=== PATIENT | male | born 1945 | race Caucasian/White ===

== ENCOUNTER 2019-11-30 09:42 | Outpatient (CLI) | payer MEDICARE, SELFPAY ==
--- NOTE | ~2019-11-30 | CT_ITS ---
EXAMINATION:CT chest wo con DATE: 11/30/2019 10:15 INDICATION: Aortic atherosclerosis. TECHNIQUE: Computed tomography (CT) of the chest was performed without intravenous contrast. Automate d exposure control and iterative reconstruction technique were employed. The dose-length product (DLP ) was 385.51 mGy-cm. COMPARISON: None. FINDINGS: The lungs demonstrate minimal atelectasis. Calcified left lung nodules and calcified left h ilar lymph nodes are consistent with old granulomatous disease. No pleural effusion. The heart size i s normal. There are coronary artery calcifications. No pericardial effusion. There are no pathologica lly enlarged lymph nodes. Thoracic aorta is normal in caliber. There is mild aortic atherosclerosis. There is severe cervical and thoracic spondylosis. IMPRESSION: 1. Mild aortic atherosclerosis. Reviewed, dictated and finalized at location A. [employer]ISH[employer]
== END 2019-11-30 09:43 | disposition home or self-care (01) ==
PROVIDERS: PCP Internal Medicine
DX: I25.118 Atherosclerotic heart disease of native coronary artery with other forms of angina pectoris (principal)
CPT/HCPCS: 71250

== ENCOUNTER 2020-07-10 15:00 | Outpatient (RCR) | payer MEDICARE, SELFPAY ==
[2020-04-18 15:25] VITALS: BP 122/80; PULSE 70; RESP 16; TEMP 36.4; O2SAT 97
[2020-04-18 16:07] VITALS: PULSE 70
== END 2020-07-10 18:20 | disposition home or self-care (01) ==
LOC: ANHCPREHAB 15:00
PROVIDERS: PCP Internal Medicine; Visit Provider Nurse Practitioner Adult Health
DX: Z95.1 Presence of aortocoronary bypass graft (principal)
CPT/HCPCS: 93798

== ENCOUNTER 2020-10-24 09:14 | Inpatient (IN) | payer MEDICARE, SELFPAY ==
[2020-10-24] VITALS (25 sets, daily range): BP systolic 116–184; BP diastolic 64–165; PULSE 94–117; RESP 14–35; TEMP 36.2–36.8; O2SAT 91–100; BMI 28.3
--- NOTE | ~2020-10-24 | CT_ITS ---
EXAMINATION: CTA chest PE protocol EXAM DATE: 10/24/2020 11:03 INDICATION: Shortness of breath and chest pain. TECHNIQUE: Spiral CTA of the chest (pulmonary arteries) was performed with 100 cc Omnipaque 350 intr avenous contrast injection. Images were acquired during the pulmonary arterial phase. Coronal maxi mum intensity projection 3D-reconstructions were created by the technologist on dedicated workstation . Axial, coronal and sagittal reformatted images were reviewed. The dose-length product (DLP) for t his examination was 590.42 mGy-cm. The exposure was tailored according to patient size (auto mA exp osure control), and iterative reconstruction (ASIR) was used as additional dose reduction technique. Comparison is made to prior examination from 11/30/2019. FINDINGS: Pulmonary arteries are well opacified and without intraluminal filling defects. No thora cic aortic dissection. There is moderate right greater than left pleural effusions with adjacent seg mental atelectasis. There is moderate amount of bilateral perihilar airspace disease, distribution blevins ggests cardiogenic pulmonary edema, but heart is within normal size limits. Infection also possible. There is a right lower lobe pulmonary nodule subsolid in density measuring up to 6 mm, stable. There are no pleural or pericardial effusions. Tracheobronchial tree is patent. There is no mediastina l, hilar or axillary lymphadenopathy. There is no pneumothorax. There are sternotomy wires, and c ardiac/coronary surgical changes. Correlate with prior history. Moderate transverse colonic divertic ulosis. There is thoracic spondylosis without osteoblastic or osteolytic lesions identified. IMPRESSION: 1. Moderate right greater than left pleural effusions with adjacent segmental atelectasis. 2. Moderate bilateral perihilar groundglass acute airspace disease most likely pulmonary edema. Infe ction not excludable. 3. Right lower lobe 6 mm nodule unchanged; additional 1 year follow-up low-dose chest CT. Reviewed, dictated and finalized at location A. BROKER IMPRESSION: 1. Moderate right greater than left pleural effusions with adjacent segmental atelectasis. 2. Moderate bilateral perihilar groundglass acute airspace disease most likely pulmonary edema. Infection not excludable. 3. Right lower lobe 6 mm nodule unchanged; additional 1 year follow-up low-dos e chest CT.
--- NOTE | ~2020-10-24 | XR_ITS ---
EXAMINATION: XR chest 1V portable DATE: 10/27/2020 13:36 INDICATION: Shortness of breath TECHNIQUE: frontal view of the chest was obtained. COMPARISON: Chest radiograph and CT dated 10/24/2020 FINDINGS: Bilateral airspace opacities most prominent in the perihilar and suprahilar regions which appears mil dly improved. Small bilateral pleural effusions, right greater than left. No pneumothorax. The cardio mediastinal silhouette is normal. Median sternotomy wires, ostial markers and mediastinal surgical cl ips consistent with prior coronary artery bypass grafting. IMPRESSION: 1. Slight improvement in bilateral perihilar and suprahilar predominant airspace opacities which coul d represent improving mild pulmonary edema or less likely pneumonia. 2. Persistent small bilateral pleural effusions. Reviewed, dictated and finalized at location B. P DROP CRANE OPERATOR IMPRESSION: 1. Slight improvement in bilateral perihilar and suprahilar predominant airspac e opacities which could represent improving mild pulmonary edema or less likely pneumonia. 2. Persistent small bilateral pleural effusions.
--- NOTE | ~2020-10-24 | XR_ITS ---
EXAMINATION: XR chest 1V portable DATE: 10/24/2020 10:31 INDICATION: Shortness of breath. TECHNIQUE: A single frontal view of the chest was obtained. COMPARISON: Chest CT 11/30/2019 FINDINGS: There are airspace opacities in all lung zones bilaterally. Pavel B-lines are noted. There is a small right pleural effusion. No pneumothorax. The heart size is normal. Median sternotomy wire s are noted. IMPRESSION: 1. Diffuse lung disease, consistent with pulmonary edema versus pneumonia. 2. Small right pleural effusion. Reviewed, dictated and finalized at location A. CLINICAL DOCUMENTATION SPECIALIST
--- NOTE | 2020-10-24 09:36 | ECG_ITS ---
Measurements Intervals Morse Rate: 109 P: -7 NJ: 189 QRS: 192 QRSD: 133 T: 2 QT: 361 QTc: 487 Interpretive Statements SINUS TACHYCARDIA RIGHT AXIS DEVIATION RIGHT BUNDLE BRANCH BLOCK BASELINE ARTIFACT- II, III, AVR, AVL, AVF, V2-V6 ABNORMAL ECG Electronically Signed On 10-24-2020 11:05:29 POWER AND RECOVERY SUPERVISOR by Nicolás Ellis D.O.
--- NOTE | 2020-10-24 09:38 | ED.SOB ---
HPI - SOB/Dyspnea General Chief Complaint: Shortness of Breath/Dyspnea Stated Complaint: sob Source: patient Mode of arrival: EMS Limitations: no limitations History of Present Illness HPI Narrative: 75-year-old male presented to the emergency department with complaints of shortness of breath. He was at home, called the ambulance. Patient was given magnesium IV in route. He states after this he is feeling a little bit better. EMS did note that he sounded somewhat wheezing on arrival. Patient states that this has been getting worse over the last couple of days. He states that he is seeing a dealer card room to be worked up for a leaky valve . Patient states that he is just started this process and is uncertain of what exactly it is. He denies any chest pain at this time. Patient denies any swelling elsewhere. He does note that his abdomen may be slightly swollen as he was having trouble getting his back brace on. Related Data Home Medications Medication Instructions Recorded Confirmed aspirin 81 mg PO DAILY 10/04/19 04/19/20 metoprolol succinate 12.5 mg PO DAILY 10/04/19 04/19/20 atorvastatin 20 mg PO HS 04/19/20 04/19/20 Allergies Allergy/AdvReac Type Severity Reaction Status Date / Time No Known Allergies Allergy Verified 10/24/20 09:23 Review of Systems Review of Systems: Narrative: CONSTITUTIONAL: Denies fever, chills, or sweats. EYES: Denies visual changes, redness, or discharge. ENT: Denies rhinorrhea, congestion, sore throat, or otalgia. CARDIOVASCULAR: Denies chest pain, palpitations, or edema. RESPIRATORY: Endorses dyspnea. GASTROINTESTINAL: Denies abdominal pain, nausea, vomiting, or diarrhea. GENITOURINARY: Denies dysuria or hematuria. SKIN: Denies rash or itching. MUSCULOSKELETAL: Denies back pain, joint pain, or myalgia. NEUROLOGIC: Denies headache, numbness, dizziness, or weakness. PSYCHIATRIC: Denies anxiety or depression. [facility] Family History Family History Sibling Acute myocardial infarction Father Lung cancer Mother Cancer Social History Social History Smoking status: Never smoker Exam Narrative: Exam Narrative: GENERAL: Well-appearing, well-nourished, and in no acute distress. HEAD: Normocephalic, atraumatic. EYES: PERRLA and EOMI. ENT: Nares clear, no rhinorrhea or epistaxis. Mucous membranes moist. Oropharynx without tonsillar hypertrophy exudate or other lesions. Bilateral TMs pearly lakhani nonbulging NECK: Supple. No adenopathy or masses. No carotid bruits or JVD CHEST: Clear to auscultation. No respiratory distress. Crackles bilaterally, right worse than left HEART: Regular rate and rhythm. No murmur heard. Normal peripheral pulses. ABDOMEN: Soft, nontender, nondistended, normal active bowel sounds. EXTREMITIES: Normal range of motion. No edema. SKIN: Warm, dry, no rash. NEURO: No focal deficits. Alert and oriented x3. PSYCH: Normal mood and affect. Course Reevaluation(s) Reevaluation #1: Sitting comfortably at this time. Patient has no complaints. He states that he is feeling somewhat better. Time: 10:55 Consultations Consultation #1: Case discussed with Dr. Dsouza, cardiology, covering for the patient's dealer card room Dr. Murdock. He was updated to the patient's presentation and evaluation thus far. He recommends holding on heparin until the CTA is resulted. Time: 11:14 Consultation #2: Spoke with Dr. Kan, hospitalist service. He agrees to accept patient for admission and further evaluation after all details of presentation and evaluation were discussed. Time: 11:26 Vital Signs Vital signs: Vital Signs Temperature 36.8 C 10/24/20 09:16 Pulse Rate 108 H 10/24/20 09:16 Respiratory Rate 32 H 10/24/20 09:16 Blood Pressure 170/108 H 10/24/20 09:16 Pulse Oximetry 94 10/24/20 09:16 Temperature 36.8 C 10/24/20 09:16 Pulse Rate 117 H 10/24/20 10:
[2020-10-24 09:55] LABS: Basophils Absolute Auto 0.1 K/mm3 (0.0-0.1); Basophils Percent Auto 0.5 % (0.2-1.2); Eosinophils Absolute Auto 0.2 K/mm3 (0-0.3); Eosinophils Percent Auto 1.5 % (0-4.4); Hematocrit 39.4 % (42.0-52.0); Hemoglobin 12.2 g/dL (14.0-18.0); Immature Granulocyte Absolute 0.04 K/mm3 (0.00-0.031); Immature Granulocyte Percent A 0.3 % (0-0.5); Lymphocytes Absolute Auto 1.57 K/mm3 (0.9-3.2); Mean Corpuscular Hemoglobin 27.9 pg (26-34); Mean Corpuscular Volume 90.2 fl (80-100); Mean Platelet Volume 8.5 fl (7.4-10.4); Monocytes Absolute Auto 0.6 K/mm3 (0.1-0.6); Monocytes Percent Auto 4.3 % (2.6-8.5); Neutrophils Absolute Auto 10.7 K/mm3 (1.3-6.7); Neutrophils Percent Auto 81.4 % (45.5-73.1); Platelet Count Result 466 k/mm3 (150-375); Red Blood Count 4.37 M/mm3 (4.6-6.20); White Blood Count 13.1 K/mm3 (4.5-10.0)
[2020-10-24 10:06] LABS: Chloride 108 mmol/L (98-107)
[2020-10-24 10:08] LABS: Magnesium 2.4 mg/dL (1.6-2.3)
[2020-10-24 10:09] LABS: Anion Gap 8 mmol/L (8-16); Blood Urea Nitrogen 22 mg/dL (9-20); Calcium 8.8 mg/dL (8.4-10.2); Carbon Dioxide 26 mmol/L (22-30); Estimated CRCL calculation 54 ml/min; Estimated Glomerular Filt Rate > 60; Glucose 155 mg/dL (75-110); Potassium 4.1 mmol/L (3.4-5.0); Sodium 142 mmol/L (137-145)
[2020-10-24 10:24] LABS: NT Pro B Type Natriuretic Pept 10000 PG/ML (5-100); Troponin I 0.501 ng/mL (0.000-0.034)
[2020-10-24] MEDS: FUROSEMIDE INJ 40 MG/4 ML VIAL IV PUSH (10:51)
[2020-10-24 12:43] LABS: Troponin I 0.521 ng/mL (0.000-0.034)
--- NOTE | 2020-10-24 15:31 | PC.NURSE ---
1500- Heart healthy diet ordered.
--- NOTE | 2020-10-24 18:38 | PC.NURSE ---
Nimo Corbett (spouse) updated
--- NOTE | 2020-10-24 19:04 | ADMGEN ---
This patient, Sourav Juan, was admitted to IMU Room 203-01. Patient/family oriented to hospital policies and general routines including ID bracelet, bed and alarms, visiting hours, pain management, procedures, bathroom and other care routines, personal items, smoking policy, room service/diet, and visiting hours. Information on how to activate the Rapid Response Team has been discussed. Patient/Family are encouraged to report perceived risks to care and to ask questions if they do not understand what they are told or what they should do.
[2020-10-24 21:13] LABS: SARS-CoV-2 RNA PCR Negative
[2020-10-25] VITALS (16 sets, daily range): BP systolic 93–125; BP diastolic 54–75; PULSE 71–106; RESP 18–24; TEMP 35.9–37.1; O2SAT 92–98
[2020-10-25 04:39] LABS: Basophils Absolute Auto 0.1 K/mm3 (0.0-0.1); Basophils Percent Auto 0.7 % (0.2-1.2); Eosinophils Absolute Auto 0.2 K/mm3 (0-0.3); Hematocrit 34.3 % (42.0-52.0); Hemoglobin 10.9 g/dL (14.0-18.0); Immature Granulocyte Absolute 0.03 K/mm3 (0.00-0.031); Immature Granulocyte Percent A 0.3 % (0-0.5); Lymphocytes Absolute Auto 1.65 K/mm3 (0.9-3.2); Lymphocytes Percent Auto 15.7 % (18.3-44.2); Mean Corpuscular HGB Conc 31.8 g/dl (32-36); Mean Corpuscular Hemoglobin 27.5 pg (26-34); Mean Corpuscular Volume 86.4 fl (80-100); Mean Platelet Volume 8.6 fl (7.4-10.4); Monocytes Absolute Auto 0.8 K/mm3 (0.1-0.6); Monocytes Percent Auto 7.3 % (2.6-8.5); Neutrophils Absolute Auto 7.8 K/mm3 (1.3-6.7); Platelet Count Result 456 k/mm3 (150-375); Red Blood Count 3.97 M/mm3 (4.6-6.20); Red Cell Distribution Width 14.9 % (11.5-14.5); White Blood Count 10.5 K/mm3 (4.5-10.0)
[2020-10-25 07:46] LABS: Alanine Aminotransferase 17 U/L (4-50); Alkaline Phosphatase 116 U/L (38-126); Anion Gap 6 mmol/L (8-16); Aspartate Amino Transferase 25 U/L (17-59); Bilirubin,Total 0.5 mg/dL (0.2-1.3); Blood Urea Nitrogen 23 mg/dL (9-20); CRP 2.5 mg/dL (<1.0); Calcium 8.4 mg/dL (8.4-10.2); Carbon Dioxide 31 mmol/L (22-30); Chloride 105 mmol/L (98-107); Estimated CRCL calculation 48 ml/min; Estimated Glomerular Filt Rate > 60; Glucose 106 mg/dL (75-110); Potassium 3.8 mmol/L (3.4-5.0); Sodium 142 mmol/L (137-145)
[2020-10-25] MEDS: ASPIRIN 81 MG CHEWABLE TABLET PO (10:10)
[2020-10-25] MEDS: METOPROLOL TARTRATE 25 MG TABLET PO ×2 (10:10→21:23)
--- NOTE | 2020-10-25 15:21 | PM.CNCAR ---
Assessment and Plan Assessment and plan (1) New onset of congestive heart failure: Code(s): I50.9 - Heart failure, unspecified Status: Acute Assessment and Plan: Likely secondary to his mitral regurgitation. Furosemide 40 mg IV daily. Basic metabolic panel morning. Continue metoprolol, aspirin, statin (2) CAD (coronary artery disease): Code(s): I25.10 - Atherosclerotic heart disease of [place] coronary artery without angina pectoris Status: Acute Assessment and Plan: 3 vessel CABG in September 2019: Continue aspirin, statin, metoprolol (3) Elevated troponin: Code(s): R77.8 - Other specified abnormalities of plasma proteins Status: Acute Assessment and Plan: Not related to ACS (4) Nonrheumatic mitral valve regurgitation: Code(s): I34.0 - Nonrheumatic mitral (valve) insufficiency Status: Acute Assessment and Plan: Moderate to severe by echocardiogram in the office which is highly eccentric. Plan for MARCO A on Friday after adequate diuresis History of Present Illness History of Present Illness Consult date/time: 10/25/20 15:21 Requesting physician: Gabriel Zafar DO Consult reason: congestive heart failure Reason For Visit: New onset of CHF Narrative: Date of service 10/25/2020 History: Patient is a 75-year-old male who has a history of hypertension, coronary disease. He did have a CABG with a SEXTON to the LAD, radial artery graft to an OM and an SVG to the PDA in September of 2019. He recently saw our our nurse practitioner in the office because diaphoresis at rest. He felt unusually fatigued and dyspneic with exertion. He also has not been sleeping very well. There was some chest symptoms also with burning in the center of his chest. An echocardiogram was ordered and was personally reviewed and analyzed. 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 He was scheduled for a MARCO A on Friday but came to the hospital yesterday because a three-week history of simply not feeling very well and shortness of breath. He was very short of breath and has had a difficult time catching up and so EMS was called. Troponins have been slightly elevated at 0.[address] scan showed a pleural effusion with ground-glass opacities and pulmonary edema. He has been diuresed. He was given IV diuretics in the emergency department and urinated copiously and was feeling better by the time he even left the emergency department. He is now being seen on the floor and states he feels better now than he has in several weeks. He denies any chest pain, syncope, presyncope, paroxysmal nocturnal dyspnea, orthopnea, edema or palpitations. Review of Systems Review of Systems: All systems reviewed & are unremarkable except as noted in HPI and below Constitutional: Constitutional: Reports fatigue and Denies weakness Eyes: Eyes: Denies blurry vision ENT: Reports Normal hearing present Cardiovascular: Cardiovascular: Denies chest pain Respiratory: Respiratory: Reports dyspnea Gastrointestinal: Gastrointestinal: Denies abdominal pain Genitourinary: Genitourinary: Denies dysuria Musculoskeletal: Musculoskeletal: Denies neck pain Integumentary/Breasts: Skin/Breast: Denies dry skin Neurologic: Denies headache(s) Psychiatric: Psychiatric: Denies anxiety Endocrine: Endocrine: Denies fatigue Hematologic/Lymphatic: Hematologic/Lymphatic: Denies easy bleeding Allergic/Immunologic: Allergic/Immunologic: Denies GI upset with certain foods PMFSH Past Medical History Medical History (Updated 10/25/20 @ 15:45 by Alexandro Cain MD) CAD (coronary artery disease) New onset of congestive heart failure Family History Family History Sibling Acute myocardial infarction Father Lung cancer Mother Cancer Social History S
--- NOTE | 2020-10-25 18:18 | PM.IMPN ---
Progress Note: A&P Assessment and Plan (1) New onset of congestive heart failure: Code(s): I50.9 - Heart failure, unspecified Status: Acute Assessment and Plan: 10/25/20 18:18 Chief Complaint: Shortness of breath Narrative: Sourav Juan is a 75 year old male with no history of hypertension or diabetes initially patient was seen by crewman armoured personnel carrier [id number] in September of 2019 and had a cardiac catheterization which showed the patient had severe three-vessel coronary artery disease and he was referred to [facility] and had a CABG in December of 2019, he received 12 weeks of cardiopulmonary rehab, patient states he was doing reasonably well, doing his daily routine activities, does have history of back pain and July of 2020 patient had a back surgery and after that he was doing very well to and was able to do his daily things, patient states 3 weeks prior to coming to emergency depart he has been feeling not well with shortness of breath, and last he was seen by his crewman armoured personnel carrier [id number] and had EKG and further evaluate patient had a transthoracic cardiac echo results not available in the chart as echo was done in the cardiology office, patient was told he has a leaky valve and needed further evaluation with a MARCO A, we will schedule to have COVID test today prior the MARCO A, however today patient was quite short of breath had difficult time catching his breath see was brought to the emergency department further evaluation. Emergency depart his tropes were elevated 0.5 flat, cardiology was consulted from the ER it was decided not to anticoagulate to further evaluate patient had CTA of the chest showed 1. Moderate right greater than left pleural effusions with adjacent segmental atelectasis. 2. Moderate bilateral perihilar groundglass acute airspace disease most likely pulmonary edema. Infection not excludable. 3. Right lower lobe 6 mm nodule unchanged; additional 1 year follow-up low-dose chest CT. It did not show patient has pulmonary emboli, he does have a exacerbation of CHF and patient was given IV Lasix in the emergency depart since then patient had filled 3 urinal and he states is feeling much better and can breathe much compared to when he arrived, the CTA of the chest also pointed patient may have a COVID-19 pneumonia patient is being tested and currently on droplet isolation. Patient will be seen crewman armoured personnel carrier [id number] and further recommendation to follow. 10/25 patient COVID test is negative, patient is seen by Cardiology started the patient IV Lasix, patient is feeling much not a short of breath patient is diuresing well, states he is filled more than 2 urinal today again, and able to breathe, will continue to diurese the patient, patient will have MARCO A on Friday and further recommendation to follow. (2) Elevated troponin: Code(s): R77.8 - Other specified abnormalities of plasma proteins Status: Acute Assessment and Plan: Most likely demand ischemia secondary to exacerbation of CHF unlikely acute coronary syndrome patient is seen by Cardiology no further workup is recommended (3) COVID-19: Code(s): U07.1 - COVID-19 Status: Acute Assessment and Plan: Patient COVID test is negative he is off isolation Time Spent With Patient Time with patient: 15 - 25 minutes Subjective Date/time seen: 10/25/20 18:18 Chief Complaint: Shortness of breath Narrative: Sourav Juan is a 75 year old male with no history of hypertension or diabetes initially patient was seen by crewman armoured personnel carrier [id number] in September of 2019 and had a cardiac catheterization which showed the patient had severe three-vessel coronary artery disease and he was referred to [facility] and had a CABG in December of 2019, he received 12 weeks of cardiopulmonary rehab, patient states he was doing reasonably well, doing his daily routine activities, does have history of back pain and July of 2020 patient had a back surgery and after that he was doing very well to an
[2020-10-25] MEDS: ATORVASTATIN 20 MG TABLET PO (21:23)
[2020-10-26] VITALS (19 sets, daily range): BP systolic 99–120; BP diastolic 53–73; PULSE 78–91; RESP 16–20; TEMP 35.6–36.1; O2SAT 93–98
[2020-10-26 05:06] LABS: Anion Gap 4 mmol/L (8-16); Blood Urea Nitrogen 26 mg/dL (9-20); Calcium 8.5 mg/dL (8.4-10.2); Carbon Dioxide 30 mmol/L (22-30); Chloride 106 mmol/L (98-107); Estimated CRCL calculation 44 ml/min; Estimated Glomerular Filt Rate 59; Glucose 104 mg/dL (75-110); Potassium 3.7 mmol/L (3.4-5.0); Sodium 140 mmol/L (137-145)
[2020-10-26] MEDS: ASPIRIN 81 MG CHEWABLE TABLET PO (08:21)
[2020-10-26] MEDS: FUROSEMIDE INJ 40 MG/4 ML VIAL IV PUSH (08:22)
[2020-10-26] MEDS: METOPROLOL TARTRATE 25 MG TABLET PO ×2 (09:22→21:10)
[2020-10-26] MEDS: POTASSIUM CHLORIDE 20 MEQ TABLET 40 MEQ PO (09:22)
--- NOTE | 2020-10-26 09:38 | PM.PNCARD ---
Progress Note: A&P Assessment and Plan (1) New onset of congestive heart failure: Code(s): I50.9 - Heart failure, unspecified Status: Acute Assessment and Plan: Likely secondary to his mitral regurgitation. DC IV furosemide. Switch him to oral furosemide 20 mg daily. Potassium supplement 40 mEq p.o. x1. (2) CAD (coronary artery disease): Code(s): I25.10 - Atherosclerotic heart disease of [place] coronary artery without angina pectoris Status: Acute Assessment and Plan: 3 vessel CABG in September 2019: Continue aspirin, statin, metoprolol (3) Elevated troponin: Code(s): R77.8 - Other specified abnormalities of plasma proteins Status: Acute Assessment and Plan: Not related to ACS (4) Nonrheumatic mitral valve regurgitation: Code(s): I34.0 - Nonrheumatic mitral (valve) insufficiency Status: Acute Assessment and Plan: Moderate to severe by echocardiogram in the office which is highly eccentric. NPO after midnight. Plan for MARCO A on Friday with Dr. Murdock Subjective Date/time seen: 10/26/20 09:38 Interval history: 75-year-old admitted for shortness of breath, heart failure Date of service 10/26/2020: He continues to breathe easier. No chest pain. No shortness of breath at this point. No swelling Review of Systems Review of Systems: All systems reviewed & are unremarkable except as noted in HPI and below Constitutional: Constitutional: Denies fatigue, Denies headache(s) and Denies weakness Eyes: Eyes: Denies blurry vision ENT: Reports Normal hearing present, Denies headache(s) and Denies neck pain Cardiovascular: Cardiovascular: Denies chest pain and Reports dyspnea Respiratory: Respiratory: Reports dyspnea Gastrointestinal: Gastrointestinal: Denies abdominal pain Genitourinary: Genitourinary: Denies dysuria Musculoskeletal: Musculoskeletal: Denies neck pain Integumentary/Breasts: Skin/Breast: Denies dry skin Neurologic: Reports Normal hearing present, Denies headache(s) and Denies weakness Psychiatric: Psychiatric: Denies anxiety Endocrine: Endocrine: Denies fatigue Hematologic/Lymphatic: Hematologic/Lymphatic: Denies easy bleeding Allergic/Immunologic: Allergic/Immunologic: Denies GI upset with certain foods Exam Narrative: Exam Narrative: Alert oriented. Appears to be in no acute distress Const: General: comfortable and no acute distress HENMT: General nose exam: Normal nares present Eyes: Sclera: sclerae normal Neck: Neck: supple and no JVD Chest: Other: No reproducible chest wall pain to palpation Resp: Auscultation: clear to auscultation bilaterally Cardio: Rate: regular rate Rhythm: regular rhythm Heart sounds: Murmur heart sound present GI: Inspection: normal to inspection Skin: General skin exam: normal color Neuro: Cranial nerves: Yes Normal hearing present Cognition (Neuro): normal cognition Speech: normal speech Extrem: General: normal to inspection Psych: Mental Status: mental status grossly normal Objective Data Vital Signs Vital Signs: Vital Signs - 24 hr 10/25/20 10:00 10/25/20 10:10 10/25/20 12:00 Temperature 36.0 C L Pulse Rate 101 H 104 H 96 Respiratory Rate 18 Blood Pressure 110/68 Pulse Oximetry 92 10/25/20 14:00 10/25/20 16:00 10/25/20 18:00 Temperature 36.4 C L Pulse Rate 82 71 97 Respiratory Rate 18 Blood Pressure 125/75 Pulse Oximetry 97 10/25/20 19:26 10/25/20 20:00 10/25/20 21:23 Temperature 36.1 C L Pulse Rate 91 78 101 H Respiratory Rate 18 18 Blood Pressure 106/67 Pulse Oximetry 96 94 10/25/20 22:00 10/25/20 23:46 10/26/20 00:00 Temperature 37.1 C Pulse Rate 78 78 79 Respiratory Rate 18 18 Blood Pressure 93/54 L Pulse Oximetry 94 94 10/26/20 02:00 10/26/20 04:00 10/26/20 06:00 Temperature 36.1 C L Pulse Rate 78 82 82 Respiratory Rate 16 Blood Pressure 101/53 L Pulse Oximetry 96 01
[2020-10-26 12:48] LABS: Basophils Absolute Auto 0.1 K/mm3 (0.0-0.1); Basophils Percent Auto 0.8 % (0.2-1.2); Eosinophils Absolute Auto 0.3 K/mm3 (0-0.3); Eosinophils Percent Auto 3.1 % (0-4.4); Hematocrit 36.8 % (42.0-52.0); Hemoglobin 11.5 g/dL (14.0-18.0); Immature Granulocyte Absolute 0.04 K/mm3 (0.00-0.031); Immature Granulocyte Percent A 0.4 % (0-0.5); Lymphocytes Absolute Auto 1.85 K/mm3 (0.9-3.2); Lymphocytes Percent Auto 17.4 % (18.3-44.2); Mean Corpuscular HGB Conc 31.3 g/dl (32-36); Mean Corpuscular Hemoglobin 27.8 pg (26-34); Mean Corpuscular Volume 88.9 fl (80-100); Mean Platelet Volume 8.5 fl (7.4-10.4); Monocytes Absolute Auto 0.8 K/mm3 (0.1-0.6); Monocytes Percent Auto 7.9 % (2.6-8.5); Neutrophils Absolute Auto 7.5 K/mm3 (1.3-6.7); Neutrophils Percent Auto 70.4 % (45.5-73.1); Platelet Count Result 482 k/mm3 (150-375); Red Blood Count 4.14 M/mm3 (4.6-6.20); White Blood Count 10.7 K/mm3 (4.5-10.0)
[2020-10-26 13:02] LABS: INR 1.1; Prothrombin Time 14.9 Seconds (11.1-14.7)
--- NOTE | 2020-10-26 15:37 | PM.IMPN ---
Progress Note: A&P Assessment and Plan (1) New onset of congestive heart failure: Code(s): I50.9 - Heart failure, unspecified Status: Acute Assessment and Plan: 10/26/20 15:37 Chief Complaint: Shortness of breath Narrative: Sourav Juan is a 75 year old male with no history of hypertension or diabetes initially patient was seen by sort operations supervisor in September of 2019 and had a cardiac catheterization which showed the patient had severe three-vessel coronary artery disease and he was referred to [facility] and had a CABG in December of 2019, he received 12 weeks of cardiopulmonary rehab, patient states he was doing reasonably well, doing his daily routine activities, does have history of back pain and July of 2020 patient had a back surgery and after that he was doing very well to and was able to do his daily things, patient states 3 weeks prior to coming to emergency depart he has been feeling not well with shortness of breath, and last he was seen by his sort operations supervisor and had EKG and further evaluate patient had a transthoracic cardiac echo results not available in the chart as echo was done in the cardiology office, patient was told he has a leaky valve and needed further evaluation with a MARCO A, we will schedule to have COVID test today prior the MARCO A, however today patient was quite short of breath had difficult time catching his breath see was brought to the emergency department further evaluation. Emergency depart his tropes were elevated 0.5 flat, cardiology was consulted from the ER it was decided not to anticoagulate to further evaluate patient had CTA of the chest showed 1. Moderate right greater than left pleural effusions with adjacent segmental atelectasis. 2. Moderate bilateral perihilar groundglass acute airspace disease most likely pulmonary edema. Infection not excludable. 3. Right lower lobe 6 mm nodule unchanged; additional 1 year follow-up low-dose chest CT. It did not show patient has pulmonary emboli, he does have a exacerbation of CHF and patient was given IV Lasix in the emergency depart since then patient had filled 3 urinal and he states is feeling much better and can breathe much compared to when he arrived, the CTA of the chest also pointed patient may have a COVID-19 pneumonia patient is being tested and currently on droplet isolation. Patient will be seen sort operations supervisor and further recommendation to follow. 10/25 patient COVID test is negative, patient is seen by Cardiology started the patient IV Lasix, patient is feeling much not a short of breath patient is diuresing well, states he is filled more than 2 urinal today again, and able to breathe, will continue to diurese the patient, patient will have MARCO A on Friday and further recommendation to follow. 10/26 patient with exacerbation of CHF being diuresed with IV Lasix is states feeling much as he has been urinating, patient is scheduled for MARCO A and further recommendations follow, will continue PT/OT. (2) Elevated troponin: Code(s): R77.8 - Other specified abnormalities of plasma proteins Status: Acute Assessment and Plan: Most likely demand ischemia secondary to exacerbation of CHF unlikely acute coronary syndrome patient is seen by Cardiology no further workup is recommended (3) COVID-19: Code(s): U07.1 - COVID-19 Status: Acute Assessment and Plan: Patient COVID test is negative he is off isolation Subjective Date/time seen: 10/26/20 15:37 Chief Complaint: Shortness of breath Narrative: Sourav Juan is a 75 year old male with no history of hypertension or diabetes initially patient was seen by sort operations supervisor in September of 2019 and had a cardiac catheterization which showed the patient had severe three-vessel coronary artery disease and he was referred to [facility] and had a CABG in December of 2019, he received 12 weeks of cardiopulmonary rehab, patient states he was doing reasonably well, doing his daily
[2020-10-26] MEDS: ATORVASTATIN 20 MG TABLET PO (21:10)
[2020-10-27] VITALS (19 sets, daily range): BP systolic 91–113; BP diastolic 56–69; PULSE 77–125; RESP 16–21; TEMP 35.7–37; O2SAT 93–99
--- NOTE | 2020-10-27 | ECHO_ITS ---
Patient Info Name: Sourav Juan Age: 75 years : 1945 Gender: Male Ht: 66 in Wt: 180 lbs BSA: 1.97 m2 HR: 75 bpm BP: 108 / 90 mmHg Heart Rhythm: Sinus Rhythm Technical Quality: Good Exam Date: 10/27/2020 11:09 AM Exam Location: [facility] Patient Status: Inpatient Admit Date: 10/24/2020 Staff Ordering Physician: Alexandro Cain MD Executive Director Sheltered Workshop: Juan R Lentz RDCS Attending Provider: Efrain Kan MD Referring Physician: Payton MORALES; Exam Type: CA echo transesophageal Study Info Indications I34.0 - Nonrheumatic mitral (valve) insufficiency Complete two-dimensional, color flow and Doppler transesophageal study is performed. History/Risk Factors CAD w/ CABG 09/2019, new CHF. Procedure Details The transesophageal probe was passed into the posterior pharynx, mid-esophagus, distal esophagus, and gastric fundus. The procedure was completed without complications. Summary 1. The transesophageal probe was passed into the posterior pharynx, mid-esophagus, distal esophagus, and gastric fundus. The procedure was completed without complications. 2. Normal left ventricular size and contractility. 3. Anterior leaflet mitral valve prolapse with highly eccentric MR jet moderate to severe. 4. No evidence of disrupted/flail chordal elements. 5. Moderately dilated left atrium. Left Ventricle Left ventricular chamber dimension is normal. Left ventricular systolic function is normal with an ejection fraction by Biplane Method of Discs of Empty. Right Ventricle Right ventricular chamber dimension is normal. Left Atria Left atrial chamber dimension is moderately enlarged. Right Atria Right atrial chamber dimension is normal. Aortic Valve The aortic valve is normal. Pulmonic Valve The pulmonic valve is not well visualized. Mitral Valve The mitral valve has anterior prolapse. There is moderate to severe mitral valve regurgitation. Tricuspid Valve The tricuspid valve leaflets are normal. Pericardium/Pleural The pericardium appears normal. Inferior Vena Cava Not well visualized inferior vena cava with Empty collapse upon inspiration consistent with Empty right atrial pressure, Empty. Aorta The aortic root size at the sinus of Valsalva is normal. Report Signatures
--- NOTE | 2020-10-27 04:14 | ECG_ITS ---
Measurements Intervals [place] Rate: 88 P: 17 OK: 189 QRS: 221 QRSD: 138 T: -29 QT: 407 QTc: 494 Interpretive Statements SINUS RHYTHM RIGHT AXIS DEVIATION RIGHT BUNDLE BRANCH BLOCK BASELINE ARTIFACT- I, II, III, AVR, AVL, AVF ABNORMAL ECG Electronically Signed On 10-27-2020 6:42:25 DOUBLE END CHUCKING MACHINE OPERATOR by Nicolás Ellis D.O.
--- NOTE | 2020-10-27 04:15 | ECG_ITS ---
Measurements Intervals [place] Rate: 87 P: -6 CO: 165 QRS: 233 QRSD: 137 T: -27 QT: 404 QTc: 489 Interpretive Statements SINUS RHYTHM RIGHT AXIS DEVIATION RIGHT BUNDLE BRANCH BLOCK LOW VOLTAGE- LIMB LEADS BASELINE ARTIFACT- I, II, III, AVR, AVL, AVF, V2 ABNORMAL ECG Electronically Signed On 10-27-2020 12:17:02 SUPERVISOR SCOURING PADS by Nicolás Ellis D.O.
[2020-10-27] MEDS: ASPIRIN 81 MG CHEWABLE TABLET PO (08:42)
[2020-10-27] MEDS: METOPROLOL TARTRATE 25 MG TABLET PO ×2 (08:42→19:58)
[2020-10-27] MEDS: FUROSEMIDE 20 MG TABLET PO (08:42)
--- NOTE | 2020-10-27 10:57 | WPDMODSED ---
Moderate Sedation Note-Pt Data Patient Data Diagnosis: coronary artery disease with previous CABG within the last year congestive heart failure with echocardiographic evidence of significant mitral regurgitation Present Complaint: short of breath Procedure to be performed/Plan: transesophageal echocardiogram Allergies Allergy/AdvReac Type Severity Reaction Status Date / Time No Known Allergies Allergy Verified 10/24/20 09:23 Home Medications Medication Instructions Recorded Confirmed Type aspirin 81 mg PO DAILY 10/04/19 10/24/20 History atorvastatin 20 mg PO HS 04/19/20 10/24/20 History colchicine 0.6 mg PO DAILY PRN 10/24/20 10/24/20 History metoprolol tartrate 25 mg PO BID 10/24/20 10/24/20 History Current Medications: Active Medications Aspirin (Aspirin 81 Mg Chewable Tablet) 81 mg PO DAILY REPLACED BY [facility] Last Admin: 10/27/20 08:42 Dose: 81 mg Documented by: Atorvastatin Calcium (Atorvastatin 20 Mg Tablet) 20 mg PO HS REPLACED BY [facility] Last Admin: 10/26/20 21:10 Dose: 20 mg Documented by: Colchicine (Colchicine 0.6 Mg Tablet) 0.6 mg PO DAILY PRN PRN Reason: inflamation Furosemide (Furosemide 20 Mg Tablet) 20 mg PO DAILY REPLACED BY [facility] Last Admin: 10/27/20 08:42 Dose: 20 mg Documented by: Metoprolol Tartrate (Metoprolol Tartrate 25 Mg Tablet) 25 mg PO Q12HR REPLACED BY [facility] Last Admin: 10/27/20 08:42 Dose: 25 mg Documented by: Sedation/Anesthesia: No previous sedation/anesthesia problems (including family history). [facility] Past Medical History Medical History (Updated 10/25/20 @ 15:45 by Alexandro Cain MD) CAD (coronary artery disease) New onset of congestive heart failure Family History Family History Sibling Acute myocardial infarction Father Lung cancer Mother Cancer Social History Social History Smoking status: Never smoker Alcohol intake: unknown Substance use: never Substance use type: does not use Gender identity (if verbalized by the patient): Male Spiritual care concerns: No Mod Sed Physical Exam Physical Exam Pre Procedural Exam: Normal: Appearance ( overweight gentleman no apparent distress), Neck, Throat, Airway, Lungs, Heart Size, Heart Rate, Heart Rhythm ( 2/6 holosystolic murmur of MR no), Neuro Exam and Extremities Hours since solid foods: 12 Hours since liquid intake: 12 Internal Medicine - PN: Obj Da Vital Signs Vital Signs: Vital Signs - 24 hr 10/26/20 11:07 10/26/20 12:00 10/26/20 13:08 Temperature 35.9 C L Pulse Rate 81 78 Respiratory Rate 20 Blood Pressure 104/65 Pulse Oximetry 94 97 10/26/20 14:00 10/26/20 15:19 10/26/20 16:00 Temperature Pulse Rate 88 78 Respiratory Rate Blood Pressure Pulse Oximetry 95 10/26/20 17:26 10/26/20 18:00 10/26/20 20:00 Temperature 35.6 C L 36.1 C L Pulse Rate 86 89 87 Respiratory Rate 20 18 Blood Pressure 105/61 107/69 Pulse Oximetry 98 98 10/26/20 21:10 10/26/20 23:42 10/27/20 00:00 Temperature 36.1 C L Pulse Rate 89 81 83 Respiratory Rate 18 Blood Pressure 99/61 L Pulse Oximetry 93 98 10/27/20 04:00 10/27/20 08:00 10/27/20 08:21 Temperature 36.0 C L 35.9 C L Pulse Rate 79 86 87 Respiratory Rate 18 20 Blood Pressure 106/64 96/61 L Pulse Oximetry 98 97 95 10/27/20 08:42 10/27/20 10:00 Temperature Pulse Rate 88 81 Respiratory Rate Blood Pressure Pulse Oximetry Intake/Output Intake/Output: Intake & Output 10/24/20 10/25/20 10/26/20 10/27/20 23:59 23:59 23:59 23:59 Intake Total 240 1770 1650 550 Output Total 2613 728 7803 600 Balance -960 950 -100 -50 Meds/Results Medications: Active Medications Generic Name Dose Route Start Last Admin Trade Name Musaq PRN Reason Stop Dose Admin Aspirin 81 mg 10/25/20 09:00 10/27/20 08:42 Aspirin 81 Mg Chewable Tablet PO 81 mg DAILY NAM Administration Atorvastatin Calcium 20 mg 10/25
--- NOTE | 2020-10-27 11:34 | P.PCNCC_ITS ---
Cardiac Cath Procedure Note Date of procedure:: 10/27/20 Performing physician:: Silvano Murdock MD Indication:: Mitral regurgitation congestive heart failure coronary artery disease with previous CABG 1 year ago Brief clinical history:: this is a 75-year-old man who has done very well following surgical myocardial revascularization 1 year ago presented with shortness of breath and fatigue this started about 3 weeks ago. Echocardiogram as an outpatient has suggested significant mitral valve regurgitation. He was admitted with some pulmonary congestion a couple of days ago was doing better following diuresis. In this setting transesophageal echo has been recommended. Procedure Procedure performed:: Transesophageal echocardiogram Sedation/Medication given:: fentanyl 50 mg Versed 2 mg case start time 11:15 a.m. case end time 11:25 a.m. sedation provided by Kisha Barahona RN, trained observer Procedure note:: patient was brought to the cardiac catheterization lab holding area where he was in the postabsorptive state placed in the supine position. Or pharyngeal benzocaine was used for topical anesthesia. He then had a bite block placed and was sedated using fentanyl and Versed as described above. Patient was well sedated for the procedure the transesophageal echocardiographic probe was then easily intubated into the esophagus and MARCO A images were obtained in multiple planes with Doppler analysis with special attention to the mitral valve anatomy. Following this the MARCO A probe was withdrawn the patient was recovering from sedation the procedure appeared to be uneventful and uncomplicated. Findings:: The left atrium is moderately enlarged. The mitral valve leaflets are thin and pliable. There appears to be prolapse of the anterior leaflet with failure to coapted with the posterior leaflet properly. This results in a highly eccentric jet of MR that extends up the posterior wall of the atrium and up to the superior aspect of the atrium. This is moderate to severe by color Doppler criteria. The posterior leaflet appears to be essentially normal. I do not visualize any flail or ruptured chordal elements. The left ventricle is normal in size and contracts well global ejection fraction is 55-60%. The aortic valve is trileaflet and pliable with mild sclerosis. Aortic root dimension is normal. The right-sided chambers are normal in appearance the tricuspid valve appears normal the interatrial septum appears unremarkable. Conclusion:: Moderate to severe mitral regurgitation resulting from anterior leaflet prolapse and a highly eccentric jet of MR ST detailed above preserved left ventricular systolic function moderately dilated left atrium Silvano Murdock MD [facility]
--- NOTE | 2020-10-27 11:39 | PM.PNCARD ---
Progress Note: A&P Additional Plan 75-year-old man with: Ischemic heart disease status post multivessel CABG 1 year ago. Unfortunately patient now has been found to have significant mitral regurgitation appears to have anterior leaflet prolapse and short of breath on that basis. He is feeling better with diuresis and appears to be essentially stable. He may be a candidate for MitraClip and I believe following discharge we recommend consult/evaluation by the valve clinic at [place] to see if this is an option for this gentleman in hopes of avoiding a 2nd sternotomy for treatment of mitral regurgitation at this point Silvano Murdock MD [facility] Subjective Date/time seen: date of service:10/27/20 11:39 Interval history: 75-year-old admitted for shortness of breath, heart failure Date of service 10/26/2020: He continues to breathe easier. No chest pain. No shortness of breath at this point. No swelling Date of service 10/27/2020: Patient is comfortable. Transesophageal echocardiogram done a short time ago demonstrates anterior leaflet mitral valve prolapse with moderate to severe MR. Left ventricular function is normal. The atrium is moderately dilated. Will be discussing with the patient referral to the valvular Heart Disease Clinic at [place] to consider the option of MitraClip in hopes of avoiding a redo sternotomy. Exam Narrative: Exam Narrative: Alert oriented. Appears to be in no acute distress Const: General: comfortable and no acute distress HENMT: General nose exam: Normal nares present Eyes: Sclera: sclerae normal Neck: Neck: supple and no JVD Chest: Other: No reproducible chest wall pain to palpation Resp: Auscultation: clear to auscultation bilaterally Cardio: Rate: regular rate Rhythm: regular rhythm Heart sounds: Murmur heart sound present GI: Inspection: normal to inspection Skin: General skin exam: normal color Neuro: Cranial nerves: Yes Normal hearing present Cognition (Neuro): normal cognition Speech: normal speech Extrem: General: normal to inspection Psych: Mental Status: mental status grossly normal Objective Data Vital Signs Vital Signs: Vital Signs - 24 hr 10/26/20 12:00 10/26/20 13:08 10/26/20 14:00 Temperature 35.9 C L Pulse Rate 81 78 88 Respiratory Rate 20 Blood Pressure 104/65 Pulse Oximetry 97 10/26/20 15:19 10/26/20 16:00 10/26/20 17:26 Temperature 35.6 C L Pulse Rate 78 86 Respiratory Rate 20 Blood Pressure 105/61 Pulse Oximetry 95 98 10/26/20 18:00 10/26/20 20:00 10/26/20 21:10 Temperature 36.1 C L Pulse Rate 89 87 89 Respiratory Rate 18 Blood Pressure 107/69 Pulse Oximetry 98 10/26/20 23:42 10/27/20 00:00 10/27/20 04:00 Temperature 36.1 C L 36.0 C L Pulse Rate 81 83 79 Respiratory Rate 18 18 Blood Pressure 99/61 L 106/64 Pulse Oximetry 93 98 98 10/27/20 08:00 10/27/20 08:21 10/27/20 08:42 Temperature 35.9 C L Pulse Rate 86 87 88 Respiratory Rate 20 Blood Pressure 96/61 L Pulse Oximetry 97 95 10/27/20 10:00 Temperature Pulse Rate 81 Respiratory Rate Blood Pressure Pulse Oximetry Intake/Output Intake/Output: Intake & Output 10/24/20 10/25/20 10/26/20 10/27/20 23:59 23:59 23:59 23:59 Intake Total 240 1770 1650 550 Output Total 3846 128 9265 600 Balance -960 950 -100 -50 Meds/Results Medications: Active Medications Generic Name Dose Route Start Last Admin Trade Name Galen PRN Reason Stop Dose Admin Aspirin 81 mg 10/25/20 09:00 10/27/20 08:42 Aspirin 81 Mg Chewable Tablet PO 81 mg DAILY NAM Administration Atorvastatin Calcium 20 mg 10/25/20 21:00 10/26/20 21:10 Atorvastatin 20 Mg Tablet PO 20 mg HS NAM Administration Colchicine 0.6 mg 10/25/20 08:19 Colchicine 0.6 Mg Tablet PO DAILY PRN inflamation Furosemide 20 mg 10/27/20 09:00 10/27/20 08:42 Furosemide 20 Mg Tablet PO 20 mg DAILY NAM Administration
--- NOTE | 2020-10-27 13:16 | PM.IMPN ---
Progress Note: A&P Assessment and Plan (1) New onset of congestive heart failure: Code(s): I50.9 - Heart failure, unspecified Status: Acute Assessment and Plan: Patient has history of triple-vessel disease status post CABG December 2019 patient presented to the hospital shortness of breath patient has known history of mitral valve disease was planned to have T for evaluation cardiology was consulted patient was treated with IV diuresis ellyn was done showed mitral valve regurgitation secondary to anterior leaflet labs may need clipping to be done as outpatient S patient continued to have shortness of breath CT scan of the chest showed bilateral pleural effusion patient currently on 5 L of oxygen . (2) Elevated troponin: Code(s): R77.8 - Other specified abnormalities of plasma proteins Status: Acute Assessment and Plan: Most likely demand ischemia secondary to exacerbation of CHF unlikely acute coronary syndrome patient is seen by Cardiology no further workup is recommended (3) COVID-19: Code(s): U07.1 - COVID-19 Status: Acute Assessment and Plan: Patient COVID test is negative he is off isolation (4) Lung nodule: Code(s): R91.1 - Solitary pulmonary nodule Status: Acute Assessment and Plan: Needs follow-up CT scan as outpatient follow-up with PCP and pulmonology (5) Bilateral pleural effusion: Code(s): J90 - Pleural effusion, not elsewhere classified Status: Acute Additional Plan Patient has bilateral pleural effusion patient short of breath on oxygen may require thoracentesis will get pulmonology evaluation Subjective Date/time seen: 10/27/20 13:16 Interval history: Patient seen and examined Patient feels short of breath requiring 5 L of oxygen patient was not on oxygen at home Patient denies fever headache chest pain I am seeing the patient for shortness of breath Exam Narrative: Exam Narrative: Alert Chest no wheeze crackles decreased air entry bilateral Abdomen nontender nondistended CVS S1 + S2 positive murmur Positive Lower extremity edema Objective Data Vital Signs Vital Signs: Vital Signs - 24 hr 10/26/20 14:00 10/26/20 15:19 10/26/20 16:00 Temperature Pulse Rate 88 78 Respiratory Rate Blood Pressure Pulse Oximetry 95 10/26/20 17:26 10/26/20 18:00 10/26/20 20:00 Temperature 96.1 F L 96.9 F L Pulse Rate 86 89 87 Respiratory Rate 20 18 Blood Pressure 105/61 107/69 Pulse Oximetry 98 98 10/26/20 21:10 10/26/20 23:42 10/27/20 00:00 Temperature 97 F L Pulse Rate 89 81 83 Respiratory Rate 18 Blood Pressure 99/61 L Pulse Oximetry 93 98 10/27/20 04:00 10/27/20 08:00 10/27/20 08:21 Temperature 96.8 F L 96.7 F L Pulse Rate 79 86 87 Respiratory Rate 18 20 Blood Pressure 106/64 96/61 L Pulse Oximetry 98 97 95 10/27/20 08:42 10/27/20 10:00 10/27/20 12:00 Temperature Pulse Rate 88 81 77 Respiratory Rate Blood Pressure Pulse Oximetry 10/27/20 12:35 Temperature 96.2 F L Pulse Rate 125 H Respiratory Rate 21 H Blood Pressure 113/69 Pulse Oximetry 98 Intake/Output Intake/Output: Intake & Output 10/24/20 10/25/20 10/26/20 10/27/20 23:59 23:59 23:59 23:59 Intake Total 240 1770 1650 550 Output Total 0392 685 5286 600 Balance -960 950 -100 -50 Meds/Results Medications: Active Medications Generic Name Dose Route Start Last Admin Trade Name Freq PRN Reason Stop Dose Admin Aspirin 81 mg 10/25/20 09:00 10/27/20 08:42 Aspirin 81 Mg Chewable Tablet PO 81 mg DAILY NAM Administration Atorvastatin Calcium 20 mg 10/25/20 21:00 10/26/20 21:10 Atorvastatin 20 Mg Tablet PO 20 mg HS NAM Administration Colchicine 0.6 mg 10/25/20 08:19 Colchicine 0.6 Mg Tablet PO DAILY PRN inflamation Furosemide 20 mg 10/27/20 09:00 10/27/20 08:42 Furosemide 20 Mg Tablet PO 20 mg DAILY NAM Administration Metoprolol Tartra
[2020-10-27] MEDS: ATORVASTATIN 20 MG TABLET PO (19:58)
[2020-10-28] VITALS (15 sets, daily range): BP systolic 107–149; BP diastolic 57–77; PULSE 76–105; RESP 16–22; TEMP 36.3–36.9; O2SAT 93–100
[2020-10-28] MEDS: METOPROLOL TARTRATE 25 MG TABLET PO ×2 (09:57→19:47)
[2020-10-28] MEDS: FUROSEMIDE 20 MG TABLET PO (09:58)
[2020-10-28] MEDS: ASPIRIN 81 MG CHEWABLE TABLET PO (09:58)
[2020-10-28 10:40] LABS: Basophils Absolute Auto 0.1 K/mm3 (0.0-0.1); Basophils Percent Auto 0.7 % (0.2-1.2); Eosinophils Absolute Auto 0.3 K/mm3 (0-0.3); Eosinophils Percent Auto 2.5 % (0-4.4); Hematocrit 39.9 % (42.0-52.0); Hemoglobin 12.5 g/dL (14.0-18.0); Immature Granulocyte Absolute 0.04 K/mm3 (0.00-0.031); Immature Granulocyte Percent A 0.4 % (0-0.5); Lymphocytes Absolute Auto 1.55 K/mm3 (0.9-3.2); Lymphocytes Percent Auto 15.6 % (18.3-44.2); Mean Corpuscular HGB Conc 31.3 g/dl (32-36); Mean Corpuscular Hemoglobin 27.1 pg (26-34); Mean Corpuscular Volume 86.6 fl (80-100); Mean Platelet Volume 8.5 fl (7.4-10.4); Monocytes Absolute Auto 0.6 K/mm3 (0.1-0.6); Monocytes Percent Auto 6.3 % (2.6-8.5); Neutrophils Absolute Auto 7.4 K/mm3 (1.3-6.7); Neutrophils Percent Auto 74.5 % (45.5-73.1); Platelet Count Result 547 k/mm3 (150-375); Red Blood Count 4.61 M/mm3 (4.6-6.20); Red Cell Distribution Width 14.6 % (11.5-14.5); White Blood Count 9.9 K/mm3 (4.5-10.0)
[2020-10-28 10:51] LABS: INR 1.1; Prothrombin Time 14.9 Seconds (11.1-14.7)
[2020-10-28 10:57] LABS: Alanine Aminotransferase 17 U/L (4-50); Albumin Level 3.6 g/dL (3.5-5.1); Alkaline Phosphatase 151 U/L (38-126); Anion Gap 2 mmol/L (8-16); Aspartate Amino Transferase 24 U/L (17-59); Bilirubin,Total 0.6 mg/dL (0.2-1.3); Blood Urea Nitrogen 23 mg/dL (9-20); CRP 2.8 mg/dL (<1.0); Carbon Dioxide 31 mmol/L (22-30); Chloride 105 mmol/L (98-107); Estimated CRCL calculation 52 ml/min; Estimated Glomerular Filt Rate > 60; Glucose 104 mg/dL (75-110); Sodium 138 mmol/L (137-145)
--- NOTE | 2020-10-28 11:05 | PM.IMPN ---
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 (2) Elevated troponin: Code(s): R77.8 - Other specified abnormalities of plasma proteins Status: Acute Assessment and Plan: Most likely demand ischemia secondary to exacerbation of CHF unlikely acute coronary syndrome patient is seen by Cardiology no further workup is recommended (3) COVID-19: Code(s): U07.1 - COVID-19 Status: Acute Assessment and Plan: Patient COVID test is negative he is off isolation (4) Lung nodule: Code(s): R91.1 - Solitary pulmonary nodule Status: Acute Assessment and Plan: Needs follow-up CT scan as outpatient follow-up with PCP and pulmonology (5) Bilateral pleural effusion: Code(s): J90 - Pleural effusion, not elsewhere classified Status: Acute Additional Plan Patient has bilateral pleural effusion patient short of breath on oxygen may require thoracentesis pending pulmonology evaluation Subjective Date/time seen: 10/28/20 11:05 Interval history: Patient seen and examined Patient feels short of breath requiring 4 L of oxygen patient was not on oxygen at home Patient denies fever headache chest pain I am seeing the patient for shortness of breath Exam Narrative: Exam Narrative: Alert Chest no wheeze crackles decreased air entry bilateral Abdomen nontender nondistended CVS S1 + S2 positive murmur Positive Lower extremity edema Objective Data Vital Signs Vital Signs: Vital Signs - 24 hr 10/27/20 12:00 10/27/20 12:35 10/27/20 14:00 Temperature 96.2 F L Pulse Rate 77 125 H 82 Respiratory Rate 21 H Blood Pressure 113/69 Pulse Oximetry 98 10/27/20 15:39 10/27/20 16:00 10/27/20 16:22 Temperature 96.4 F L Pulse Rate 81 86 Respiratory Rate 21 H Blood Pressure 101/61 Pulse Oximetry 98 97 10/27/20 17:41 10/27/20 19:57 10/27/20 19:58 Temperature 98.3 F Pulse Rate 94 89 80 Respiratory Rate 18 Blood Pressure 91/56 L Pulse Oximetry 99 10/27/20 20:00 10/27/20 21:28 10/27/20 23:32 Temperature 98.6 F Pulse Rate 91 88 90 Respiratory Rate 16 Blood Pressure 95/58 L Pulse Oximetry 98 94 10/27/20 23:33 10/28/20 00:00 10/28/20 03:56 Temperature 98.4 F Pulse Rate 84 95 Respiratory Rate 16 Blood Pressure 132/77 Pulse Oximetry 98 95 10/28/20 03:58 10/28/20 04:00 10/28/20 05:37 Temperature Pulse Rate 93 77 Respiratory Rate Blood Pressure Pulse Oximetry 98 10/28/20 08:00 10/28/20 08:26 10/28/20 09:57 Temperature 97.8 F Pulse Rate 102 H 105 H Respiratory Rate 22 H Blood Pressure 149/77 H Pulse Oximetry 98 98 10/28/20 10:00 Temperature Pulse Rate 97 Respiratory Rate Blood Pressure Pulse Oximetry Intake/Output Intake/Output: Intake & Output 10/25/20 10/26/20 10/27/20 10/28/20 23:59 23:59 23:59 23:59 Intake Total 1770 1650 1030 400 Output Total 820 1750 900 600 Balance 950 -100 130 -200 Meds/Results Medications: Active Medications Generic Name Dose Route Start Last Admin Trade Name [place] PRN Reason Stop Dose Admin Aspirin 81 mg 10/25/20 09:00 10/28/20 09:58 Aspirin 81 Mg Chewable Tablet PO 81 mg DAILY [facility]
--- NOTE | 2020-10-28 13:24 | PM.PNCARD ---
Progress Note: A&P Assessment and Plan (1) New onset of congestive heart failure: Code(s): I50.9 - Heart failure, unspecified Status: Acute Assessment and Plan: Remains in respiratory failure with hypoxia requiring significant O2 supplementation. Secondary to severity of his mitral regurgitation. Stable thus far on oral furosemide 20 mg daily. Will need to monitor volume status particularly within the next 24 hours. Patient remains on significant O2 supplementation. Wean as tolerated as he was not on oxygen at home previously. O2 eval at rest and with activity. Continue to work with PT OT. Outpatient referral to [place] mitral valve repair/replacement considerations. May transfer to med/surg. (2) CAD (coronary artery disease): Code(s): I25.10 - Atherosclerotic heart disease of [place] coronary artery without angina pectoris Status: Acute Assessment and Plan: 3 vessel CABG in September 2019: Continue aspirin, statin, metoprolol (3) Elevated troponin: Code(s): R77.8 - Other specified abnormalities of plasma proteins Status: Acute Assessment and Plan: Not related to ACS, non [place] troponin elevation related to CHF due to moderate to severe MR (4) Nonrheumatic mitral valve regurgitation: Code(s): I34.0 - Nonrheumatic mitral (valve) insufficiency Status: Acute Assessment and Plan: Moderate to severe by echocardiogram in the office which is highly eccentric. 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 Subjective Date/time seen: Date of service: 10/28/20 13:24 Interval history: 75-year-old admitted for shortness of breath, heart failure anterior mitral valve prolapse with moderate to severe mitral regurgitation Patient reports he has somewhat improved today able to walk with physical therapy twice worse yesterday could only tolerate once. Still notes significant exertional dyspnea. Remains on 4 L nasal cannula, none at home. Denies chest pain, palpitation, dizziness. No lower extremity edema. Review of Systems Review of Systems: All systems reviewed & are unremarkable except as noted in HPI and below Constitutional: Constitutional: Reports as per HPI, Denies fatigue, Denies headache(s) and Denies weakness Eyes: Eyes: Reports as per HPI and Denies blurry vision ENT: Reports as per HPI, Reports Normal hearing present, Denies headache(s) and Denies neck pain Cardiovascular: Cardiovascular: Reports as per HPI, Reports no additional cardiovascular complaints, Denies chest pain, Denies leg edema, Denies palpitations and Reports dyspnea Respiratory: Respiratory: Reports as per HPI, Reports dyspnea and Reports dyspnea on exertion Gastrointestinal: Gastrointestinal: Reports as per HPI, Denies abdominal pain, Denies melena and Denies hematochezia Genitourinary: Genitourinary: Reports as per HPI and Denies dysuria Musculoskeletal: Musculoskeletal: Reports as per HPI and Denies neck pain Integumentary/Breasts: Skin/Breast: Reports as per HPI and Denies dry skin Neurologic: Reports as per HPI, Reports Normal hearing present, Denies confusion, Denies headache(s) and Denies weakness Psychiatric: Psychiatric: Reports as per HPI and Denies anxiety Endocrine: Endocrine: Reports no additional endocrine complaints, Reports as per HPI and Denies fatigue Hematologic/Lymphatic: Hematologic/Lymphatic: Reports no additional hematologic/lymphatic complaints, Reports as per HPI and Denies easy bleeding Allergic/Immunologic: Allergic/Immunologic: Denies GI upset with certain foods Exam Narrative: Exam Narrative: Alert oriented. Appears to be in no acute distress nasal cannula. Const: General: comfortable and no acute distress HENMT: General nose exam: Normal nares present Eyes: Sclera: sclerae normal Neck: Neck: supple and no JVD Chest: Other: No reproducible chest wall pain to palpation Resp: Auscultation
--- NOTE | 2020-10-28 14:47 | PM.CNPUL ---
Assessment and Plan Assessment and plan (1) Bilateral pleural effusion: Code(s): J90 - Pleural effusion, not elsewhere classified Status: Acute Additional Plan Bilateral pleural effusions secondary to congestive heart failure from moderate to severe mitral regurgitation. Cardiology is managing with preload and afterload reduction. I have nothing further to offer. Once adequately diuresed and is euvolemic oxygenation should improve to normal. Thank you for the consult. History of Present Illness History of Present Illness Consult date: 10/28/20 Chief complaint: New onset of CHF Narrative: This is a very pleasant 75-year-old gentleman who I was asked to see for bilateral pleural effusions. The patient was admitted for shortness of breath and was found to be in pulmonary edema with bilateral pleural effusions which appear to be due to his severe mitral regurgitation. He has no signs or symptoms of pneumonia or infection. Review of Systems Review of Systems: All systems reviewed & are unremarkable except as noted in HPI and below PMFSH Past Medical History Medical History (Updated 10/27/20 @ 13:20 by Han Eaton MD) CAD (coronary artery disease) New onset of congestive heart failure Family History Family History Sibling Acute myocardial infarction Father Lung cancer Mother Cancer Social History Social History Smoking status: Never smoker Alcohol intake: unknown Substance use: never Substance use type: does not use Gender identity (if verbalized by the patient): Male Spiritual care concerns: No Meds Home Medications and Allergies Home Medications Medication Instructions Recorded Confirmed Type aspirin 81 mg PO DAILY 10/04/19 10/24/20 History atorvastatin 20 mg PO HS 04/19/20 10/24/20 History colchicine 0.6 mg PO DAILY PRN 10/24/20 10/24/20 History metoprolol tartrate 25 mg PO BID 10/24/20 10/24/20 History Allergies Allergy/AdvReac Type Severity Reaction Status Date / Time No Known Allergies Allergy Verified 10/24/20 09:23 Vital Signs Vital Signs - 24 hr 10/27/20 15:39 10/27/20 16:00 10/27/20 16:22 Temperature 35.8 C L Pulse Rate 81 86 Respiratory Rate 21 H Blood Pressure 101/61 Pulse Oximetry 98 97 01/29/21 17:41 10/27/20 19:57 10/27/20 19:58 Temperature 36.8 C Pulse Rate 94 89 80 Respiratory Rate 18 Blood Pressure 91/56 L Pulse Oximetry 99 10/27/20 20:00 10/27/20 21:28 10/27/20 23:32 Temperature 37.0 C Pulse Rate 91 88 90 Respiratory Rate 16 Blood Pressure 95/58 L Pulse Oximetry 98 94 10/27/20 23:33 10/28/20 00:00 10/28/20 03:56 Temperature 36.9 C Pulse Rate 84 95 Respiratory Rate 16 Blood Pressure 132/77 Pulse Oximetry 98 95 10/28/20 03:58 10/28/20 04:00 10/28/20 05:37 Temperature Pulse Rate 93 77 Respiratory Rate Blood Pressure Pulse Oximetry 98 10/28/20 08:00 10/28/20 08:26 10/28/20 09:57 Temperature 36.6 C Pulse Rate 102 H 105 H Respiratory Rate 22 H Blood Pressure 149/77 H Pulse Oximetry 98 98 10/28/20 10:00 10/28/20 12:00 Temperature 36.5 C Pulse Rate 97 83 Respiratory Rate 16 Blood Pressure 109/57 L Pulse Oximetry 96 Exam Const: General: cooperative, healthy appearing, comfortable, no acute distress, well developed, alert, awake and Physically active Nutritional Appearance: average body habitus and well nourished HENMT: Head: normal to inspection, normocephalic and atraumatic Eyes: General: appearance normal, both eyes and all related structures Neck: Neck: trachea midline and supple Resp: Effort & Inspection: normal respiratory effort and able to speak in complete sentences Auscultation: crackles and diminished lung sounds Cardio: Jugular venous distension: no JVD Rate: regular rate Rhythm: regular rhythm Heart sounds: S
--- NOTE | 2020-10-28 15:40 | PC.NURSE ---
This patient, Sourav Juan, was transferred to [facility] on 10/28/20 at 1539. Personal belongings sent with patient. Report given to Toshia ROYAL. Appropriate documentation sent with patient.
--- NOTE | 2020-10-28 16:17 | PC.NURSE ---
This patient, Sourav Juan, was received from [[facility]] on 10/28/20 at 1540. Patient/family oriented to unit policies and routines
[2020-10-28] MEDS: ATORVASTATIN 20 MG TABLET PO (19:47)
[2020-10-29] VITALS (11 sets, daily range): BP systolic 93–109; BP diastolic 54–83; PULSE 78–100; RESP 20; TEMP 36.2–36.6; O2SAT 95–100
[2020-10-29 07:15] LABS: Basophils Absolute Auto 0.1 K/mm3 (0.0-0.1); Basophils Percent Auto 0.7 % (0.2-1.2); Eosinophils Absolute Auto 0.2 K/mm3 (0-0.3); Eosinophils Percent Auto 2.5 % (0-4.4); Hematocrit 38.3 % (42.0-52.0); Hemoglobin 11.9 g/dL (14.0-18.0); Immature Granulocyte Absolute 0.03 K/mm3 (0.00-0.031); Immature Granulocyte Percent A 0.3 % (0-0.5); Lymphocytes Absolute Auto 1.99 K/mm3 (0.9-3.2); Lymphocytes Percent Auto 22.6 % (18.3-44.2); Mean Corpuscular HGB Conc 31.1 g/dl (32-36); Mean Corpuscular Hemoglobin 27.4 pg (26-34); Mean Corpuscular Volume 88.2 fl (80-100); Mean Platelet Volume 8.6 fl (7.4-10.4); Monocytes Absolute Auto 0.8 K/mm3 (0.1-0.6); Monocytes Percent Auto 8.6 % (2.6-8.5); Neutrophils Absolute Auto 5.7 K/mm3 (1.3-6.7); Neutrophils Percent Auto 65.3 % (45.5-73.1); Platelet Count Result 511 k/mm3 (150-375); Red Blood Count 4.34 M/mm3 (4.6-6.20); Red Cell Distribution Width 14.6 % (11.5-14.5); White Blood Count 8.8 K/mm3 (4.5-10.0)
[2020-10-29 07:23] LABS: INR 1.1; Prothrombin Time 15.1 Seconds (11.1-14.7)
[2020-10-29 07:34] LABS: Alanine Aminotransferase 14 U/L (4-50); Albumin Level 3.2 g/dL (3.5-5.1); Alkaline Phosphatase 130 U/L (38-126); Anion Gap 0 mmol/L (8-16); Aspartate Amino Transferase 20 U/L (17-59); Bilirubin,Total 0.5 mg/dL (0.2-1.3); Blood Urea Nitrogen 23 mg/dL (9-20); CRP 3.2 mg/dL (<1.0); Calcium 8.8 mg/dL (8.4-10.2); Carbon Dioxide 32 mmol/L (22-30); Chloride 105 mmol/L (98-107); Estimated CRCL calculation 48 ml/min; Estimated Glomerular Filt Rate > 60; Glucose 95 mg/dL (75-110); Potassium 4.1 mmol/L (3.4-5.0); Sodium 137 mmol/L (137-145)
--- NOTE | 2020-10-29 09:08 | PM.PNCARD ---
Progress Note: A&P Assessment and Plan (1) New onset of congestive heart failure: Code(s): I50.9 - Heart failure, unspecified Status: Acute Assessment and Plan: Remains in respiratory failure with hypoxia requiring significant O2 supplementation although exam is fairly unremarkable. Secondary to severity of his mitral regurgitation. -due to persistent significant O2 supplementation will give additional Lasix 20 mg p.o. equal 40 mg this morning. Monitor response. O2 supplementation requirements primary need for hospitalization at this point. -Wean as tolerated as he was not on oxygen at home previously. O2 eval at rest and with activity. Continue to work with PT OT. Outpatient referral to [place] mitral valve repair/replacement considerations. (2) CAD (coronary artery disease): Code(s): I25.10 - Atherosclerotic heart disease of [place] coronary artery without angina pectoris Status: Acute Assessment and Plan: 3 vessel CABG in September 2019: Continue aspirin, statin, metoprolol (3) Elevated troponin: Code(s): R77.8 - Other specified abnormalities of plasma proteins Status: Acute Assessment and Plan: Not related to ACS, non [place] troponin elevation related to CHF due to moderate to severe MR (4) Nonrheumatic mitral valve regurgitation: Code(s): I34.0 - Nonrheumatic mitral (valve) insufficiency Status: Acute Assessment and Plan: Moderate to severe by echocardiogram in the office which is highly eccentric. 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 Subjective Date/time seen: Date of service: 10/29/20 09:08 Interval history: 75-year-old admitted for shortness of breath, heart failure anterior mitral valve prolapse with moderate to severe mitral regurgitation Denies significant shortness of breath but has not done much this morning. Oxygen wean down to 2 L overnight yet was 88% so increased to 3 L nasal cannula. Denies chest pain, orthopnea. No edema. Still fatigued but improving. Review of Systems Review of Systems: All systems reviewed & are unremarkable except as noted in HPI and below Constitutional: Constitutional: Reports as per HPI, Denies fatigue, Denies headache(s) and Denies weakness Eyes: Eyes: Reports as per HPI and Denies blurry vision ENT: Reports as per HPI, Reports Normal hearing present, Denies headache(s) and Denies neck pain Cardiovascular: Cardiovascular: Reports as per HPI, Reports no additional cardiovascular complaints, Denies chest pain, Denies leg edema, Denies palpitations, Reports dyspnea and Reports dyspnea on exertion Respiratory: Respiratory: Reports as per HPI, Reports dyspnea and Reports dyspnea on exertion Gastrointestinal: Gastrointestinal: Reports as per HPI, Denies abdominal pain, Denies melena and Denies hematochezia Genitourinary: Genitourinary: Reports as per HPI and Denies dysuria Musculoskeletal: Musculoskeletal: Reports as per HPI and Denies neck pain Integumentary/Breasts: Skin/Breast: Reports as per HPI and Denies dry skin Neurologic: Reports as per HPI, Reports Normal hearing present, Denies confusion, Denies headache(s) and Denies weakness Psychiatric: Psychiatric: Reports as per HPI, Denies anxiety and Denies confusion Endocrine: Endocrine: Reports no additional endocrine complaints, Reports as per HPI, Denies fatigue and Denies palpitations Hematologic/Lymphatic: Hematologic/Lymphatic: Reports no additional hematologic/lymphatic complaints, Reports as per HPI and Denies easy bleeding Allergic/Immunologic: Allergic/Immunologic: Denies GI upset with certain foods Exam Narrative: Exam Narrative: Alert oriented. Appears to be in no acute distress nasal cannula. Const: General: comfortable and no acute distress; No confusion Orientation/consciousness: No confusion HENMT: General nose exam: Normal nares present Eyes: Sclera: sclerae normal Neck:
[2020-10-29] MEDS: METOPROLOL TARTRATE 25 MG TABLET PO ×2 (10:02→21:37)
[2020-10-29] MEDS: FUROSEMIDE 20 MG TABLET PO ×2 (10:02→10:03)
[2020-10-29] MEDS: ASPIRIN 81 MG CHEWABLE TABLET PO (10:03)
--- NOTE | 2020-10-29 12:40 | PM.IMPN ---
Progress Note: A&P Assessment and Plan (1) New onset of congestive heart failure: Code(s): I50.9 - Heart failure, unspecified Status: Acute Assessment and Plan: 10/29/20 12:40 Chief Complaint: Shortness of breath Narrative: Sourav Juan is a 75 year old male with no history of hypertension or diabetes initially patient was seen by network lead in September of 2019 and had a cardiac catheterization which showed the patient had severe three-vessel coronary artery disease and he was referred to [facility] and had a CABG in December of 2019, he received 12 weeks of cardiopulmonary rehab, patient states he was doing reasonably well, doing his daily routine activities, does have history of back pain and July of 2020 patient had a back surgery and after that he was doing very well to and was able to do his daily things, patient states 3 weeks prior to coming to emergency depart he has been feeling not well with shortness of breath, and last he was seen by his network lead and had EKG and further evaluate patient had a transthoracic cardiac echo results not available in the chart as echo was done in the cardiology office, patient was told he has a leaky valve and needed further evaluation with a MARCO A, we will schedule to have COVID test today prior the MARCO A, however today patient was quite short of breath had difficult time catching his breath see was brought to the emergency department further evaluation. Emergency depart his tropes were elevated 0.5 flat, cardiology was consulted from the ER it was decided not to anticoagulate to further evaluate patient had CTA of the chest showed 1. Moderate right greater than left pleural effusions with adjacent segmental atelectasis. 2. Moderate bilateral perihilar groundglass acute airspace disease most likely pulmonary edema. Infection not excludable. 3. Right lower lobe 6 mm nodule unchanged; additional 1 year follow-up low-dose chest CT. It did not show patient has pulmonary emboli, he does have a exacerbation of CHF and patient was given IV Lasix in the emergency depart since then patient had filled 3 urinal and he states is feeling much better and can breathe much compared to when he arrived, the CTA of the chest also pointed patient may have a COVID-19 pneumonia patient is being tested and currently on droplet isolation. Patient will be seen network lead and further recommendation to follow. 10/25 patient COVID test is negative, patient is seen by Cardiology started the patient IV Lasix, patient is feeling much not a short of breath patient is diuresing well, states he is filled more than 2 urinal today again, and able to breathe, will continue to diurese the patient, patient will have MARCO A on Friday and further recommendation to follow. 10/26 patient with exacerbation of CHF being diuresed with IV Lasix is states feeling much as he has been urinating, patient is scheduled for MARCO A and further recommendations follow, will continue PT/OT. 10/29 patient had MARCO A on 10/27 showed moderate to severe mitral regurgitation resulting from anterior leaflet prolapse and a highly eccentric jet of MR ST. resulting in shortness of breath, today patient is seen by network lead, being diuresed as patient is requiring oxygen, he is not on oxygen, patient will be refer to [facility] for surgical repair of severe mitral regurgitation, will continue PT/OT, will do home oxygen evaluation before discharging home possibly tomorrow. (2) Elevated troponin: Code(s): R77.8 - Other specified abnormalities of plasma proteins Status: Acute Assessment and Plan: Most likely demand ischemia secondary to exacerbation of CHF unlikely acute coronary syndrome patient is seen by Cardiology no further workup is recommended (3) COVID-19: Code(s): U07.1 - COVID-19 Status: Acute Assessment and Plan: Patient COVID test is negative he is off isolation Subjective Date/time seen: 10/29/20 12:40
[2020-10-29] MEDS: ATORVASTATIN 20 MG TABLET PO (21:38)
[2020-10-30] VITALS (10 sets, daily range): BP systolic 100–115; BP diastolic 53–72; PULSE 64–95; RESP 20; TEMP 36.7; O2SAT 93–100
[2020-10-30 06:35] LABS: Hematocrit 36.7 % (42.0-52.0); Hemoglobin 11.6 g/dL (14.0-18.0); Mean Corpuscular HGB Conc 31.6 g/dl (32-36); Mean Corpuscular Hemoglobin 27.2 pg (26-34); Mean Corpuscular Volume 86.2 fl (80-100); Mean Platelet Volume 8.5 fl (7.4-10.4); Platelet Count Result 497 k/mm3 (150-375); Red Blood Count 4.26 M/mm3 (4.6-6.20); Red Cell Distribution Width 14.6 % (11.5-14.5); White Blood Count 10.4 K/mm3 (4.5-10.0)
--- NOTE | 2020-10-30 08:45 | PC.NURSE ---
Spoke with Dr Kan about metoprolol 25mg and furosemide 20mg wether he wanted it given . Current bp and pulse 96/[address] Kan said ok to give. Will continue to monitor.
[2020-10-30] MEDS: COLCHICINE 0.6 MG TABLET PO (08:48)
[2020-10-30] MEDS: ASPIRIN 81 MG CHEWABLE TABLET PO (08:48)
[2020-10-30] MEDS: METOPROLOL TARTRATE 25 MG TABLET PO (08:48)
[2020-10-30] MEDS: FUROSEMIDE 20 MG TABLET PO (08:48)
--- NOTE | 2020-10-30 09:42 | PM.PNCARD ---
Progress Note: A&P Additional Plan 75-year-old man with: Coronary artery disease bypass grafting 1 year ago doing well with no symptomatic ischemia. Patient now has developed significant mitral regurgitation resulting in dyspnea. He is doing well clinically with furosemide. Hopefully oxygen can be weaned down to room air today his lungs sound completely clear. If and when that is achieved he can be discharged and as I mentioned last week I am going to arrange for follow up/consultation with the valve Clinic at [facility] as he may well be a candidate for a MitraClip procedure which would hopefully save him a redo sternotomy at this point for surgical mitral valve repair Silvano Murdock MD [facility] Subjective Date/time seen: 10/30/20 09:42 Interval history: 75-year-old admitted for shortness of breath, heart failure anterior mitral valve prolapse with moderate to severe mitral regurgitation 10/30/2020: Patient is very comfortable this morning working with physical therapy denies any shortness of breath still on 2 L oxygen per nasal cannula. Saturations fine Exam Narrative: Exam Narrative: Alert oriented. Appears to be in no acute distress nasal cannula. Const: General: comfortable and no acute distress; No confusion Orientation/consciousness: No confusion HENMT: General nose exam: Normal nares present Eyes: Sclera: sclerae normal Neck: Neck: supple and no JVD Chest: Other: No reproducible chest wall pain to palpation Resp: Auscultation: clear to auscultation bilaterally Cardio: Rate: regular rate Rhythm: regular rhythm Heart sounds: Murmur heart sound present (Soft, high-pitched blowing near holosystolic murmur loudest at apex) GI: Inspection: normal to inspection Skin: General skin exam: normal color Neuro: General: No confusion Cranial nerves: Yes Normal hearing present Cognition (Neuro): normal cognition Speech: normal speech Extrem: General: normal to inspection Psych: Mental Status: mental status grossly normal Objective Data Vital Signs Vital Signs: Vital Signs - 24 hr 10/29/20 10:02 10/29/20 12:00 10/29/20 14:00 Temperature 36.2 C L Pulse Rate 100 85 82 Respiratory Rate 20 Blood Pressure 103/83 Pulse Oximetry 95 10/29/20 16:00 10/29/20 20:00 10/29/20 21:37 Temperature Pulse Rate 81 89 80 Respiratory Rate Blood Pressure Pulse Oximetry 100 10/29/20 21:49 10/30/20 00:00 10/30/20 04:00 Temperature 36.6 C Pulse Rate 88 79 85 Respiratory Rate 20 Blood Pressure 93/54 L Pulse Oximetry 100 10/30/20 05:24 10/30/20 08:48 Temperature 36.7 C Pulse Rate 86 88 Respiratory Rate 20 Blood Pressure 100/53 L Pulse Oximetry 96 Intake/Output Intake/Output: Intake & Output 10/27/20 10/28/20 10/29/20 10/30/20 23:59 23:59 23:59 23:59 Intake Total 8071 480 3989 1000 Output Total 092 764 6973 300 Balance 130 5 400 700 Meds/Results Medications: Active Medications Generic Name Dose Route Start Last Admin Trade Name Freq PRN Reason Stop Dose Admin Aspirin 81 mg 10/25/20 09:00 10/30/20 08:48 Aspirin 81 Mg Chewable Tablet PO 81 mg DAILY NAM Administration Atorvastatin Calcium 20 mg 10/25/20 21:00 10/29/20 21:38 Atorvastatin 20 Mg Tablet PO 20 mg HS NAM Administration Colchicine 0.6 mg 10/25/20 08:19 10/30/20 08:48 Colchicine 0.6 Mg Tablet PO 0.6 mg DAILY PRN Administration inflamation Furosemide 20 mg 10/27/20 09:00 10/30/20 08:48 Furosemide 20 Mg Tablet PO 20 mg DAILY NAM Administration Metoprolol Tartrate 25 mg 10/25/20 09:00 10/30/20 08:48 Metoprolol Tartrate 25 Mg Tablet PO 25 mg Q12HR NAM Administration Radiology Results: ITS Impressions Chest CTA 10/24/20 11:06 IMPRESSION: 1. Moderate right greater than left pleural effusions with adjacent segmental atelectasis. 2. Moderate bilateral perihilar groundglass acute airspace disease most likely pulmonary edema. Inf
--- NOTE | 2020-10-30 10:16 | WPDCDIQUERY2 ---
CDI Query Clarification Request -Pt arrived with complaint of shortness of breath -Pt was on O2 at 4L and has weaned down to 2L. Pt is not on home O2. - Remains in respiratory failure with hypoxia requiring significant O2 supplementation documented by cardiology. -No mention of respiratory failure by hospitalist Please clarify if respiratory failure was ruled in or ruled out. Also if ruled in, please clarify acuity: acute, chronic, acute on chronic or unable to determine. <Nimo Aquino RN - Last Filed: 10/30/20 10:23> Clarified Diagnosis (1) Acute respiratory failure: Code(s): J96.00 - Acute respiratory failure, unspecified whether with hypoxia or hypercapnia <Nimo Aquino RN - Last Filed: 10/30/20 10:23> Status: Acute <Nimo Aquino RN - Last Filed: 10/30/20 10:23> Assessment and Plan: Upon arrival patient was short of breath and was requiring oxygen most likely secondary moderate to severe mitral valve regurgitation. Patient was diuresed symptoms improved at discharge patient was on room air. <Efrain Kan MD - Last Filed: 11/06/20 13:48>
[2020-10-30 10:44] LABS: Alanine Aminotransferase 16 U/L (4-50); Albumin Level 3.6 g/dL (3.5-5.1); Alkaline Phosphatase 138 U/L (38-126); Anion Gap 8 mmol/L (8-16); Aspartate Amino Transferase 21 U/L (17-59); Bilirubin,Total 0.4 mg/dL (0.2-1.3); Blood Urea Nitrogen 23 mg/dL (9-20); CRP 2.7 mg/dL (<1.0); Carbon Dioxide 31 mmol/L (22-30); Chloride 102 mmol/L (98-107); Estimated CRCL calculation 44 ml/min; Estimated Glomerular Filt Rate 59; Glucose 159 mg/dL (75-110); Potassium 3.8 mmol/L (3.4-5.0); Prothrombin Time 14.2 Seconds (11.1-14.7); Sodium 141 mmol/L (137-145)
[2020-10-30 13:28] LABS: Magnesium 1.9 mg/dL (1.6-2.3)
--- NOTE | 2020-10-30 14:32 | PM.DS ---
DS: Admitting Diagnosis Admitting Diagnosis Admitting Diagnosis: Chief Complaint: Shortness of breath DS: Discharge Diagnosis Discharge Diagnosis (1) New onset of congestive heart failure: Code(s): I50.9 - Heart failure, unspecified Status: Acute Assessment and Plan: 10/29/20 12:40 Chief Complaint: Shortness of breath Narrative: Sourav Juan is a 75 year old male with no history of hypertension or diabetes initially patient was seen by document control associate in September of 2019 and had a cardiac catheterization which showed the patient had severe three-vessel coronary artery disease and he was referred to [facility] and had a CABG in December of 2019, he received 12 weeks of cardiopulmonary rehab, patient states he was doing reasonably well, doing his daily routine activities, does have history of back pain and July of 2020 patient had a back surgery and after that he was doing very well to and was able to do his daily things, patient states 3 weeks prior to coming to emergency depart he has been feeling not well with shortness of breath, and last he was seen by his document control associate and had EKG and further evaluate patient had a transthoracic cardiac echo results not available in the chart as echo was done in the cardiology office, patient was told he has a leaky valve and needed further evaluation with a MARCO A, we will schedule to have COVID test today prior the MARCO A, however today patient was quite short of breath had difficult time catching his breath see was brought to the emergency department further evaluation. Emergency depart his tropes were elevated 0.5 flat, cardiology was consulted from the ER it was decided not to anticoagulate to further evaluate patient had CTA of the chest showed 1. Moderate right greater than left pleural effusions with adjacent segmental atelectasis. 2. Moderate bilateral perihilar groundglass acute airspace disease most likely pulmonary edema. Infection not excludable. 3. Right lower lobe 6 mm nodule unchanged; additional 1 year follow-up low-dose chest CT. It did not show patient has pulmonary emboli, he does have a exacerbation of CHF and patient was given IV Lasix in the emergency depart since then patient had filled 3 urinal and he states is feeling much better and can breathe much compared to when he arrived, the CTA of the chest also pointed patient may have a COVID-19 pneumonia patient is being tested and currently on droplet isolation. Patient will be seen document control associate and further recommendation to follow. 10/25 patient COVID test is negative, patient is seen by Cardiology started the patient IV Lasix, patient is feeling much not a short of breath patient is diuresing well, states he is filled more than 2 urinal today again, and able to breathe, will continue to diurese the patient, patient will have MARCO A on Friday and further recommendation to follow. 10/26 patient with exacerbation of CHF being diuresed with IV Lasix is states feeling much as he has been urinating, patient is scheduled for MARCO A and further recommendations follow, will continue PT/OT. 10/29 patient had MARCO A on 10/27 showed moderate to severe mitral regurgitation resulting from anterior leaflet prolapse and a highly eccentric jet of MR ST. resulting in shortness of breath, today patient is seen by document control associate, being diuresed as patient is requiring oxygen, he is not on oxygen, patient will be refer to [facility] for surgical repair of severe mitral regurgitation, will continue PT/OT, will do home oxygen evaluation before discharging home possibly tomorrow. (2) Elevated troponin: Code(s): R77.8 - Other specified abnormalities of plasma proteins Status: Acute Assessment and Plan: Most likely demand ischemia secondary to exacerbation of CHF unlikely acute coronary syndrome patient is seen by Cardiology no further workup is recommended (3) COVID-19: Code(s): U07.1 - COVID-19 Status: Acute Assessment a
--- NOTE | 2020-10-30 15:25 | PCRCNOTE ---
HOME O2 EVAL COMPLETE, NO REQUIREMENTS
== END 2020-10-30 16:30 | disposition home or self-care (01) | DRG 291 ==
LOC: ANHED 11:28 → ANHIMU 17:31 → ANH3MEDSUR 10-28 15:30
PROVIDERS: Internal Medicine Cardiovascular Disease; Admitting Provider Family Medicine; Emergency Provider Emergency Medicine; PCP Internal Medicine; Visit Provider Family Medicine
DX: I50.9 Heart failure, unspecified (principal); J96.00 Acute respiratory failure, unspecified whether with hypoxia or hypercapnia; I24.8 Other forms of acute ischemic heart disease; I25.10 Atherosclerotic heart disease of native coronary artery without angina pectoris; I34.0 Nonrheumatic mitral (valve) insufficiency; R91.1 Solitary pulmonary nodule; R77.8 Other specified abnormalities of plasma proteins; Z20.822 Contact with and (suspected) exposure to COVID-19; Z95.1 Presence of aortocoronary bypass graft
CPT/HCPCS: 36415; 71045; 71275; 80048; 80053; 83735; 83880; 84484; 85025; 85027; 85610; 86140; 93005; 93312; 93320; 93325; 94618; 96374; 97110; 97116; 97161; 97165; 97530; 97535; 99285; A9270; C9803; J1940; J2250; J3010; Q9967; U0003; U0005

== ENCOUNTER 2021-04-04 17:00 | Outpatient (RCR) | payer MEDICARE, SELFPAY ==
[2021-01-09 15:51] VITALS: PULSE 71
== END 2021-04-04 18:48 | disposition home or self-care (01) ==
LOC: ANHCPREHAB 17:00
PROVIDERS: PCP Internal Medicine; Visit Provider Internal Medicine Cardiovascular Disease
DX: Z95.2 Presence of prosthetic heart valve (principal)
CPT/HCPCS: 93798

== ENCOUNTER 2023-06-05 01:58 | Day surgery (SDC) | payer MEDICARE, SELFPAY ==
[2023-05-26 09:31] VITALS: BMI 29.1
--- NOTE | 2023-05-26 09:47 | PC.NURSE ---
Report to the Outpatient Waiting Room, entrance under the green pavilion located off [facility], at time __829 on date ___06/05/23____. Planned Procedure Time: ___929 . Time changes happen often and if your time is changed the preop area will call you the afternoon before. - You and your visitor will be asked to self-screen and do not enter if you have any COVID symptoms. - A mask is optional within the hospital at this time. -MAY HAVE LIGHT BREAKFAST Take the following medications with a SIP of water the morning of surgery: REGULAR HOME MEDS DO NOT STOP ANY OF YOUR OTHER PRESCRIPTION MEDICATIONS PRIOR TO SURGERY ?EXCEPT THE FOLLOWING Medications to discontinue per physician NONE Date to take last dose Please no make-up, nail kyrgyz, hairspray, perfume, deodorant, or body powder the day of surgery. No jewelry (including any body piercings) or valuables the day of surgery, leave them at home. Please take a shower or bath the night before, or the morning of, surgery with an antibacterial soap. Wear comfortable, loose fitting clothing. Children are encouraged to wear pajamas. - Jewelry must be removed prior to entering the operating room. Rings and piercings that are not removed may be cut off. - The hospital will not accept responsibility for valuables. - Please leave all valuables, including medications, at home the day of surgery. -MAY DRIVE SELF TO/FROM HOSPITAL - BUT LIGHT BULB REPLACER IS RECOMMENDED For Pediatric surgeries, we recommend two adults accompany the child home. Follow any additional instructions given to you from your surgeon. If you or anyone in your household have experienced Covid symptoms in the past week, please notify your surgeon or the nurse liaison at the phone number below for possible testing. Telephone instructions given to ___PT and asked if any additional questions and then verbalized understanding. Patient advised to call surgeon office or pre surgery nurse liaison [phone] if any additional questions.
[2023-06-05] VITALS (10 sets, daily range): BP systolic 117–150; BP diastolic 58–78; PULSE 64–72; RESP 14–16; TEMP 36.7; O2SAT 94–98
--- NOTE | 2023-06-05 07:11 | WPDHPUPDATE1 ---
History and Physical Update Update Date/Time: 06/05/23 07:11 History and Physical has been reviewed, including an updated exam of the patient. There are NO changes in the patient's condition. Risks, benefits, and alternatives have been discussed and questions answered. Patient agrees to proceed with procedure.
[2023-06-05] MEDS: LIDO 1%/EPINEPHRINE 1:100,000 20 ML VIAL 5 ML INFILTRATE (07:42)
[2023-06-05] MEDS: BACITRACIN OINTMENT 15 GM TUBE 1 APPLIC TOPICAL (07:43)
--- NOTE | 2023-06-05 07:54 | SUR.OPER ---
Frozen section specimen sent with SAADIA Newton and received in pathology by Ama
--- NOTE | 2023-06-05 09:07 | W.PM.PROC2 ---
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 Description of Procedure The mass on the patient's nasal dorsum was identified with him and marked with his consent. He was then taken to the operating room where he was placed supine on the operating table. The face was prepped and draped in usual fashion. A time-out was held and confirmed. The site was carefully examined under loupe magnification for estimated peripheral margin. The area was widely infiltrated with 1% lidocaine with epinephrine. The excision was carried out as marked. The most cephalad aspect was marked with a suture for 12 o'clock. Specimen was sent to pathologist. The pathology report indicates keratotic mass. The specific diagnosis of actinic keratosis was not made on frozen section. No malignancy was identified. A local tissue transfer was designed on the left side of the patient's nose. This was infiltrated further with 1% lidocaine with epinephrine. It was incised, elevated and rotated. A large standing cone on the superior aspect was removed. The wound was inset with 4-0 intradermal Vicryl this. and the skin closed with a running 5 0 nylon. Tolerated well the site was dressed with bacitracin ointment discharged with instructions in wound care and follow-up and a prescription for hydrocodone 5/325 5. Estimated Blood Loss 5 Drains No Packing No Pathology Yes Complications No immediate complications Condition Stable Disposition Same day
== END 2023-06-05 09:10 | disposition home or self-care (01) ==
PROVIDERS: PCP Internal Medicine; Visit Provider Plastic Surgery
PROC: (CPT 14060; principal; 2023-06-05 07:30)
DX: L82.1 Other seborrheic keratosis (principal); I34.1 Nonrheumatic mitral (valve) prolapse; I10 Essential (primary) hypertension; Z79.82 Long term (current) use of aspirin; Z95.5 Presence of coronary angioplasty implant and graft
CPT/HCPCS: 14060; 88305; 88331; A9270

== ENCOUNTER 2023-12-08 13:37 | Outpatient (CLI) | payer MEDICARE, SELFPAY ==
--- NOTE | 2023-12-08 | ECHO_ITS ---
Patient Info Name: Sourav Juan Age: 78 years : 1945 Gender: Male Ht: 66 in Wt: 180 lbs BSA: 1.97 m2 HR: 75 bpm BP: 145 / 81 mmHg Heart Rhythm: Sinus Rhythm Technical Quality: Fair Exam Date: 12/08/2023 1:49 PM Exam Location: Echo Lab Patient Status: Outpatient Admit Date: 12/08/2023 Staff Ordering Physician: RAYSARACHEAL Local Area Network Administrator: Yeny Knox RDCS Attending Provider: TAMIKA*RACHEAL Referring Physician: VALENTINO, REKHA; Exam Type: CA echo doppler color flow Study Info Indications Z98.890 - S/P MITRAL VALVE CLIP IMPLANTATION Complete two-dimensional, color flow and Doppler transthoracic echocardiogram is performed. Summary 1. Complete two-dimensional, color flow and Doppler transthoracic echocardiogram is performed. 2. Left ventricular hypertrophy with normal systolic function and grade 1 diastolic noncompliance. 3. Left atrial a large. 4. MitraClip device visualized, trace to mild mitral regurgitation. 5. Sclerotic aortic valve which is not stenotic and trivial AI. 6. Normal sinus rhythm with first-degree AV block. Left Ventricle Left ventricular chamber dimension is normal. Left ventricular systolic function is normal, estimated at 60-65%. The left ventricular diastolic function is grade I diastolic dysfunction. Right Ventricle Right ventricular chamber dimension is normal. Left Atria Left atrial chamber dimension is moderately enlarged. Right Atria Right atrial chamber dimension is normal. Aortic Valve The aortic valve is trileaflet. There is mild aortic valve sclerosis. There is trace aortic valve regurgitation. Pulmonic Valve The pulmonic valve is not well visualized. Mitral Valve The MitraClip mitral valve leaflefts are Empty. There is trace regurgitation of the MitraClip mitral valve. Tricuspid Valve The tricuspid valve leaflets are normal. Pericardium/Pleural The pericardium appears normal. Aorta The aortic root size at the sinus of Valsalva is normal. Left Ventricular Outflow Tract Name Value Normal LVOT 2D LVOT Diameter 1.9 cm LVOT Doppler LVOT Peak Gradient 5 mmHg LVOT Mean Gradient 2 mmHg LVOT VTI 22 cm LVOT VTI/AV VTI Ratio 0.9 LVOT Stroke Volume 63 ml LVOT CO 4.6 l/min LVOT CI 2.3 l/min/m2 Pulmonic Valve Name Value Normal RVOT Doppler RVOT Peak Gradient 3 mmHg PV Doppler PV Peak Gradient 3 mmHg Mitral Valve Name Value Normal MV Doppler
== END 2023-12-08 13:38 | disposition home or self-care (01) ==
PROVIDERS: PCP Internal Medicine
DX: Z98.890 Other specified postprocedural states (principal); Z95.818 Presence of other cardiac implants and grafts
CPT/HCPCS: 93306

== ENCOUNTER 2024-04-29 13:56 | Emergency (ER) | payer MEDICARE, SELFPAY ==
--- NOTE | ~2024-04-29 | XR_ITS ---
EXAMINATION: XR abdomen/kub 1V DATE: 04/29/2024 14:42 INDICATION: Constipation. TECHNIQUE: A supine view of the abdomen on 2 radiographs was obtained. COMPARISON: None. FINDINGS: There are no dilated loops of bowel. There is a large volume of stool in the colon. There a re changes of posterior fusion procedure in lumbar spine. Median sternotomy wires are noted. IMPRESSION: 1. Nonobstructive bowel gas pattern. Reviewed, dictated and finalized at location A.
--- NOTE | ~2024-04-29 | XR_ITS ---
XR chest 1V portable Ordering provider: Jason Prajapati MD History: 79 years Male with . weakness . Comparison: October 27, 2020 FINDINGS: MEDIASTINUM: The cardiac silhouette is not enlarged. Postoperative changes in the mediastinum. LUNGS: No infiltrates, effusions or pneumothorax. OTHER: No free air under the diaphragm. IMPRESSION: No acute cardiopulmonary pathology. Reviewed, dictated and finalized at location A.
--- NOTE | 2024-04-29 13:59 | ECG_ITS ---
Test Date: 2024-04-29 14:03:07 Measurements Intervals [place] Rate: 103 P: -16 LA: 192 QRS: 259 QRSD: 140 T: 14 QT: 339 QTc: 444 Interpretive Statements SINUS TACHYCARDIA MARKED RIGHT AXIS DEVIATION [QRS AXIS > 100] RIGHT BUNDLE BRANCH BLOCK [120+ ms QRS DURATION, UPRIGHT V1, 40+ ms S IN I/aVL/V4/V5/V6] CONSIDER PREVIOUSINFERIOR MYOCARDIAL INFARCTION , ABNORMAL ECG No previous ECG available for comparison Electronically Signed On 04-30-2024 11:03:15 CDT by Silvano Murdock M.D.
[2024-04-29 14:02] VITALS: BP 141/79; PULSE 103; RESP 12; TEMP 37.9; O2SAT 98
[2024-04-29] MEDS: ACETAMINOPHEN 500 MG TABLET 1000 MG PO (14:23)
[2024-04-29] MEDS: SODIUM CHLORIDE 0.9% IV 1,000 ML 999 ML IV CONT ×2 (14:23→17:38)
[2024-04-29 14:54] LABS: Basophils Percent Auto 0.2 % (0.2-1.2); Eosinophils Percent Auto 0.1 % (0-4.4); Hematocrit 42.4 % (42.0-52.0); Hemoglobin 13.7 g/dL (14.0-18.0); Immature Granulocyte Absolute 0.09 K/mm3 (0.00-0.031); Immature Granulocyte Percent A 0.8 % (0-0.5); Lymphocytes Absolute Auto 0.47 K/mm3 (0.9-3.2); Lymphocytes Percent Auto 4.3 % (18.3-44.2); Mean Corpuscular HGB Conc 32.3 g/dl (32-36); Mean Corpuscular Volume 92.8 fl (80-100); Mean Platelet Volume 8.6 fl (7.4-10.4); Monocytes Absolute Auto 0.6 K/mm3 (0.1-0.6); Monocytes Percent Auto 5.4 % (2.6-8.5); Neutrophils Absolute Auto 9.7 K/mm3 (1.3-6.7); Neutrophils Percent Auto 89.2 % (45.5-73.1); Platelet Count Result 367 k/mm3 (150-375); Red Blood Count 4.57 M/mm3 (4.6-6.20); Red Cell Distribution Width 13.5 % (11.5-14.5); White Blood Count 10.8 K/mm3 (4.5-10.0)
[2024-04-29 15:07] LABS: Alanine Aminotransferase 23 U/L (6-50); Albumin Level 3.7 g/dL (3.5-5.1); Alkaline Phosphatase 138 U/L (38-126); Anion Gap 8 mmol/L (4-12); Aspartate Amino Transferase 30 U/L (17-59); Bilirubin,Total 0.8 mg/dL (0.2-1.3); Blood Urea Nitrogen 19 mg/dL (9-20); Calcium 8.6 mg/dL (8.4-10.2); Carbon Dioxide 30 mmol/L (22-30); Chloride 98 mmol/L (98-107); Estimated CRCL calculation 48 ml/min; Estimated Glomerular Filt Rate > 60; Glucose 108 mg/dL (65-110); Potassium 4.1 mmol/L (3.4-5.0); Sodium 136 mmol/L (137-145)
[2024-04-29 15:30] LABS: Influenza A QL RT-PCR Negative (Negative); Influenza B QL RT-PCR Negative (Negative); RSV RNA, RT-PCR Negative (Negative); SARS-CoV-2 RNA PCR Positive (Negative)
--- NOTE | 2024-04-29 15:31 | ED.FALL ---
HPI - Fall General Chief Complaint: Fall Stated Complaint: back pain Time Seen by Provider: 04/29/24 13:58 History of Present Illness HPI Narrative: Patient is a 79-year-old male who presents ER with back pain. Ongoing for 6 weeks after bending over to pick his keys up under a car. Reports he underwent spinal injection last week after having a CT scan performed. He could not get an MRI due to a mitral valve clip. He reports he initially had improvement his pain but then the pain returned. It is in the right lower back near the PSIS. No fevers or chills or sweats. No difficulty with urination. Patient had a bowel movement 8 days ago but has been constipated since then. He reports he does not feel like he needs to strain to go. He has had no incontinence of stool. No saddle anesthesia. No lower extremity numbness or weakness. Patient did have a fall today and was too weak to stand up. On arrival he is found to be febrile. Of note his is known to be COVID positive he has not been diagnosed with COVID as of yet. Related Data Home Medications Medication Instructions Recorded Confirmed aspirin 81 mg chewable tablet 81 mg PO DAILY 10/04/19 05/26/23 atorvastatin 20 mg tablet 20 mg PO HS 04/19/20 05/26/23 colchicine 0.6 mg tablet 0.6 mg PO DAILY PRN inflamation 10/24/20 05/26/23 acetaminophen 500 mg tablet 500 mg PO Q6H PRN Pain 01/09/21 05/26/23 albuterol 90 mcg/actuation aerosol 90 mcg inhalation Q4-5H PRN 01/09/21 05/26/23 inhaler Shortness Of Breath clopidogrel 75 mg tablet 75 mg PO DAILY 01/09/21 05/26/23 potassium chloride 10 mEq 10 meq PO DAILY 01/09/21 05/26/23 tablet,extended release metoprolol tartrate 25 mg tablet 25 mg PO DAILY 01/17/21 05/26/23 Allergies Allergy/AdvReac Type Severity Reaction Status Date / Time No Known Allergies Allergy Verified 04/29/24 14:04 Review of Systems Review of Systems: All systems reviewed & are unremarkable except as noted in HPI and below Constitutional: Constitutional: Reports chills, Reports fatigue and Denies fever(s) Cardiovascular: Cardiovascular: Reports no additional cardiovascular complaints Respiratory: Respiratory: Reports no additional respiratory complaints Gastrointestinal: Gastrointestinal: Reports no additional gastrointestinal complaints Musculoskeletal: Musculoskeletal: Reports back pain, Denies arthralgias and Denies joint swelling Neurologic: Reports system reviewed and no additional complaints, except as documented PMFSH Past Medical History Medical History CAD (coronary artery disease) New onset of congestive heart failure Family History Family History Sibling Acute myocardial infarction Father Lung cancer Mother Cancer Social History Social History Smoking status: Never smoker Second hand tobacco smoke exposure: No Alcohol intake: unknown Alcohol use details: STATES VERY RARE - 1-2/YR Substance use: never Substance use type: does not use Living arrangements: with family Gender identity (if verbalized by the patient): Male Sexual Orientation (if Verbalized by the Patient): Straight or Heterosexual Spiritual care concerns: No Exam Narrative: GENERAL: Well-appearing, well-nourished, and in no acute distress. HEAD: Normocephalic, atraumatic. ENT: Mucous membranes moist. NECK: Supple. CHEST: Clear to auscultation. No respiratory distress. HEART: Regular rate and rhythm. Normal peripheral pulses. ABDOMEN: Soft, nontender, nondistended. Back: No midline tenderness at T/L-spine. There is mild tenderness over the right posterior inferior spinous process. EXTREMITIES: Normal range of motion. No edema. SKIN: Warm, dry, no rash. NEURO: Alert and oriented x3. PSYCH: Normal mood and affect. Course Vital Signs Vital signs: Vital Signs Temperat
[2024-04-29 16:00] VITALS: BP 116/70; PULSE 100; RESP 16; TEMP 37.5; O2SAT 98
[2024-04-29 17:48] LABS: Add Urine Microscopic? NO; Appearance Urine Clear (Clear); Bilirubin Urine Negative (Negative); Blood Urine Negative (Negative); Color Urine Yellow (Yellow); Glucose Urine UA Negative (Negative); Ketones Urine Negative (Negative); Leukocyte Esterase Ur Negative LEU/UL (Negative); Nitrate Urine Negative (Negative); Protein Urine Negative (Negative); Specific Grav Ur 1.012 (1.001-1.035); pH Urine 5.5 (5.0-9.0)
[2024-04-29 18:05] VITALS: BP 126/61; PULSE 92; RESP 18; TEMP 36.9; O2SAT 95
== END 2024-04-29 19:08 | disposition home or self-care (01) ==
PROVIDERS: Emergency Provider Emergency Medicine; PCP Internal Medicine
DX: K59.00 Constipation, unspecified (principal); U07.1 COVID-19; I25.10 Atherosclerotic heart disease of native coronary artery without angina pectoris; I50.9 Heart failure, unspecified
CPT/HCPCS: 36415; 71045; 74018; 80053; 81003; 85025; 87637; 93005; 96360; 96361; 99283; A9270; J7030

== ENCOUNTER 2024-07-18 17:24 | Emergency (ER) | payer MEDICARE, SELFPAY ==
[2024-07-18] VITALS (28 sets, daily range): BP systolic 0–167; BP diastolic 0–86; PULSE 0–108; RESP 0–26; TEMP 36.3; O2SAT 0–99
--- NOTE | ~2024-07-18 | XR_ITS ---
XR chest 1V portable Ordering provider: Tonja Tong PA-C History: 79 years Male with . dyspnea . Comparison: April 29, 2024 FINDINGS: MEDIASTINUM: The cardiac silhouette is slightly enlarged. Postoperative changes in the mediastinum. L eft central line with the tip overlying superior vena cava. Congestive georgiana. LUNGS: No infiltrates, effusions or pneumothorax. Prominent markings bilaterally. Interstitial changes are seen bilaterally. OTHER: No free air under the diaphragm. IMPRESSION: Bilateral interstitial changes suggestive of pneumonitis. Underlying pulmonary edema is not excluded. Reviewed, dictated and finalized at location A.
--- NOTE | ~2024-07-18 | CT_ITS ---
CT brain wo con Ordering provider: Tonja Tong PA-C History: 79 years Male with . AMS . Comparison: None. Technique: CT of the head without contrast. Radiation reduction technique utilized.The dose-length product was 681 mGy-cm. FINDINGS: BRAIN PARENCHYMA AND CSF SPACES: Intraparenchymal intracerebral hemorrhage is noted in the left parie howard temporal area with surrounding edema. The hematoma measures 3.1 x 6.5 cm. Intraventricular hemor rhage is seen in the lateral ventricles more on the right side, third ventricle and fourth ventricle. Effacement of the sulci is seen suggestive of brain edema. Iyjh-fy-[id number] midline shift is seen measu ring 1.2 cm. Subarachnoid hemorrhage is seen in the upper left parietal area.. Effacement of the basal cisterns is seen suggestive of uncal herniation. VISUALIZED PARANASAL SINUSES: Well aerated. MASTOIDS: Well aerated. BONES: The bones appear intact. SOFT TISSUES: Visualized nasopharynx is normal. Superficial soft tissues are normal. IMPRESSION: Parenchymal intracerebral and intraventricular hemorrhage with effacement of the sulci suggestive of brain edema. Ramv-md-[id number] midline shift. Uncal herniation. Physician: Tonja Tong PA-C Was notified with the result of the patient at 7:37 PM on July 18 2024. Reviewed, dictated and finalized at location A. IMPRESSION: Parenchymal intracerebral and intraventricular hemorrhage with effacement of th e sulci suggestive of brain edema. [id number] midline shift. Uncal herniation. Physician: Tonja Tong PA-C Was notified with the result of the patient at 7:37 PM on July 18 2024.
--- NOTE | 2024-07-18 17:23 | ECG_ITS ---
Test Date: 2024-07-18 17:31:58 Measurements Intervals [place] Rate: 77 P: 19 CO: 195 QRS: 252 QRSD: 129 T: 16 QT: 396 QTc: 450 Interpretive Statements SINUS RHYTHM WITH SINUS ARRHYTHMIA RIGHT AXIS DEVIATION [QRS AXIS > 100] RIGHT BUNDLE BRANCH BLOCK [120+ ms QRS DURATION, UPRIGHT V1, 40+ ms S IN I/aVL/V4/V5/V6] ABNORMAL ECG No previous ECG available for comparison Electronically Signed On 07-19-2024 10:40:45 CDT by Alexandro Cain M.D.
--- NOTE | 2024-07-18 17:52 | PC.NURSE ---
BS 177
[2024-07-18 17:54] LABS: Glucose Point of Care 177 mg/dl (65-105)
[2024-07-18 18:19] LABS: Add Urine Microscopic? YES; Appearance Urine Clear (Clear); Bacteria Urine None Seen /hpf; Bilirubin Urine Negative (Negative); Blood Urine Negative (Negative); Color Urine Yellow (Yellow); Glucose Urine UA Negative (Negative); Ketones Urine Negative (Negative); Leukocyte Esterase Ur Negative LEU/UL (Negative); Nitrate Urine Negative (Negative); Protein Urine 1+ mg/dL (Negative); RBC Urine 0-2 /hpf (0-2); Specific Grav Ur 1.011 (1.001-1.035); Squamous Epithelial Cell Urine None Seen /hpf (Few); Urobilinogen Urine 0.2 mg/dL (<2.0); WBC Urine 0-5 /hpf (0-3)
--- NOTE | 2024-07-18 19:07 | ED.AMS ---
HPI - Altered Mental Status General Chief Complaint: Altered Mental Status <Tonja Tong PA-C - Last Filed: 07/19/24 02:25> Stated Complaint: ams <Tonja Tong PA-C - Last Filed: 07/19/24 02:25> Time Seen by Provider: 07/18/24 18:48 <Tonja Tong PA-C - Last Filed: 07/19/24 02:25> Source: family and EMS <Tonja Tong PA-C - Last Filed: 07/19/24 02:25> Mode of arrival: EMS <CLEM Renteria Last Filed: 07/19/24 02:25> Limitations: altered mental status <CLEM Renteria Last Filed: 07/19/24 02:25> History of Present Illness HPI narrative: This is a 79-year-old male that presents to the emergency department for lethargy. Reportedly patient has been lethargic since this afternoon. Last known well approximately around 2:00 p.m.. Patient recently suffered an ischemic stroke. Was seen at [facility] for this. Currently in our rehab facility. Patient with right-sided deficits and is aphasic since the stroke. Today he started to become unresponsive even to painful stimuli. Was sent in from rehab for further evaluation. <Tonja Tong PA-C - Last Filed: 07/19/24 02:25> Related Data Home Medications: Home Medications Medication Instructions Recorded Confirmed aspirin 81 mg chewable tablet 81 mg PO DAILY 10/04/19 06/28/24 apixaban 5 mg tablet 5 mg feeding tube BID 06/28/24 06/28/24 atorvastatin 40 mg tablet 40 mg feeding tube HS 06/28/24 06/28/24 ceftriaxone 2 gram intravenous 2 g IV Q24H 06/28/24 06/28/24 solution metoprolol succinate 25 mg 25 mg PO DAILY 06/28/24 06/28/24 tablet,extended release 24 hr omega 8-wzq-mre-fish oil 1,000 mg 1 cap PO TIDWM 06/28/24 06/28/24 (120 mg-180 mg) capsule (Fish Oil) <CLEM Renteria Last Filed: 07/19/24 02:25> Allergies/Adverse Reactions: Allergies Allergy/AdvReac Type Severity Reaction Status Date / Time No Known Allergies Allergy Verified 04/29/24 14:04 <Tonja Tong PA-C - Last Filed: 07/19/24 02:25> Review of Systems Review of Systems: ROS unobtainable: Yes unobtainable due to mental status <Tonja Tong PA-C - Last Filed: 07/19/24 02:25> [facility] Past Medical History Medical History: Medical History CAD (coronary artery disease) CHF (congestive heart failure) Enlarged prostate HTN (hypertension) New onset of congestive heart failure Severe mitral valve regurgitation <Tonja Tong PA-C - Last Filed: 07/19/24 02:25> Surgical History Surgical History: Surgical History History of lumbar surgery <CLEM Renteria Last Filed: 07/19/24 02:25> Family History Family History: Family History Sibling Acute myocardial infarction Father Lung cancer Mother Cancer <CLEM Renteria Last Filed: 07/19/24 02:25> Social History Social History: Social History Smoking status: Unknown if ever smoked Second hand tobacco smoke exposure: No Additional smoking assessment comments: UNKNOWN. COULDNT FIND IN HISTORY IF PT SMOKED. PT NONVERBAL Alcohol intake: unknown Alcohol use details: STATES VERY RARE - 1-2/YR Substance use: never Substance use type: does not use Living arrangements: with family Gender identity (if verbalized by the patient): Male Sexual Orientation (if Verbalized by the Patient): Straight or Heterosexual <Tonja Tong PA-C - Last Filed: 07/19/24 02:25> Exam Narrative: GENERAL: Elderly, ill-appearing HEAD: Normocephalic, atraumatic. EYES: Pupils dilated and fixed ENT: Nares clear, no rhinorrhea or epistaxis. Mucous membranes moist. Oropharynx without tonsillar hypertrophy exudate or other lesions. NECK: Supple. No adenopathy or masses. CHEST: Snor
[2024-07-18 20:03] LABS: Basophils Absolute Auto 0.1 K/mm3 (0.0-0.1); Basophils Percent Auto 0.2 % (0.2-1.2); Hematocrit 33.6 % (42.0-52.0); Hemoglobin 10.6 g/dL (14.0-18.0); Immature Granulocyte Absolute 0.16 K/mm3 (0.00-0.031); Immature Granulocyte Percent A 0.6 % (0-0.5); Lymphocytes Absolute Auto 1.09 K/mm3 (0.9-3.2); Lymphocytes Percent Auto 4.4 % (18.3-44.2); Mean Corpuscular HGB Conc 31.5 g/dl (32-36); Mean Corpuscular Hemoglobin 29.5 pg (26-34); Mean Corpuscular Volume 93.6 fl (80-100); Mean Platelet Volume 9.1 fl (7.4-10.4); Monocytes Absolute Auto 1.5 K/mm3 (0.1-0.6); Monocytes Percent Auto 6.1 % (2.6-8.5); Neutrophils Percent Auto 88.7 % (45.5-73.1); Platelet Count Result 667 k/mm3 (150-375); Red Blood Count 3.59 M/mm3 (4.6-6.20); Red Cell Distribution Width 19.2 % (11.5-14.5); White Blood Count 24.8 K/mm3 (4.5-10.0)
[2024-07-18 20:16] LABS: INR 1.6; Prothrombin Time 19.1 Seconds (11.1-14.7)
[2024-07-18 20:17] LABS: Partial Thromboplastin Time 36.7 Seconds (22.3-36.8)
[2024-07-18 20:18] LABS: Alanine Aminotransferase 73 U/L (6-50); Albumin Level 3.2 g/dL (3.5-5.1); Alkaline Phosphatase 172 U/L (38-126); Anion Gap 5 mmol/L (4-12); Aspartate Amino Transferase 57 U/L (17-59); Bilirubin,Total 0.5 mg/dL (0.2-1.3); Blood Urea Nitrogen 26 mg/dL (9-20); Calcium 8.8 mg/dL (8.4-10.2); Carbon Dioxide 34 mmol/L (22-30); Chloride 98 mmol/L (98-107); Estimated CRCL calculation 86 ml/min; Estimated Glomerular Filt Rate > 60; Glucose 182 mg/dL (65-110); Potassium 4.2 mmol/L (3.4-5.0); Sodium 137 mmol/L (137-145)
--- NOTE | 2024-07-18 20:19 | PC.NURSE ---
[facility] called to request hospice service. Nurse will respond in less that 2 hours
[2024-07-18 20:25] LABS: NT Pro B Type Natriuretic Pept 4050 pg/mL (19.9-100)
--- NOTE | 2024-07-18 20:27 | PC.NURSE ---
Pt hr 40, rr 4, oxygen on 15lnrb is 50%. EDP Ran updated family that patient is getting close to expiration. Pt continues to be suctioned, repositioned.
--- NOTE | 2024-07-18 20:39 | PC.NURSE ---
daughter and son in law arrived at this time. Family updated. Oxygen is 48% on 15lnrb. [facility] hospice has been consulted. ETA approximately 2 hours.
--- NOTE | 2024-07-18 21:52 | PC.NURSE ---
TOD 214 called by Kinga Mcgee [place]
--- NOTE | 2024-07-18 21:53 | PC.NURSE ---
[facility] will call back.
--- NOTE | 2024-07-18 21:56 | PC.NURSE ---
[facility] notified GENNY Sanchez
--- NOTE | 2024-07-18 22:03 | PC.NURSE ---
[facility] referral number [id number]
--- NOTE | 2024-07-18 22:04 | PC.NURSE ---
spoke with Alley at [facility] office who released body
--- NOTE | 2024-07-18 22:06 | PC.NURSE ---
[facility] notified at this time.
--- NOTE | 2024-07-18 22:15 | PC.NURSE ---
ELIZABETH notified at this time - GENNY James
--- NOTE | 2024-07-18 22:17 | PC.NURSE ---
Francisco @ [facility] notified of patient. They will wait until [facility] releases or assumes care of pt.
--- NOTE | 2024-07-18 23:15 | PC.NURSE ---
pt stan varner at this time. Awaiting call back from [facility]. once they decide if they would like the patient or not, they will notify keyonna at [facility] [phone]
--- NOTE | 2024-07-18 23:36 | PC.NURSE ---
Francisco at [facility] updated that the patient is a candidate for [facility]. They will contact him if the family does not choose to donate.
--- NOTE | 2024-07-19 01:38 | PC.NURSE ---
MTS states Pt is a candidate and family did consent to his donation.
--- NOTE | 2024-07-19 01:39 | PC.NURSE ---
[facility] notified of Family consent and pt donation. Transport being set up by [facility] at this time. Security also notified.
== END 2024-07-18 23:16 | disposition expired ==
PROVIDERS: Emergency Medicine; Emergency Provider Physician Assistant
DX: I61.5 Nontraumatic intracerebral hemorrhage, intraventricular (principal); I61.8 Other nontraumatic intracerebral hemorrhage; G93.5 Compression of brain; I69.320 Aphasia following cerebral infarction; I69.351 Hemiplegia and hemiparesis following cerebral infarction affecting right dominant side; I25.10 Atherosclerotic heart disease of native coronary artery without angina pectoris; I50.9 Heart failure, unspecified; I11.0 Hypertensive heart disease with heart failure; I34.0 Nonrheumatic mitral (valve) insufficiency; N40.0 Benign prostatic hyperplasia without lower urinary tract symptoms; R94.31 Abnormal electrocardiogram [ECG] [EKG]; I45.10 Unspecified right bundle-branch block
CPT/HCPCS: 36415; 70450; 71045; 80053; 81001; 82948; 83880; 85025; 85610; 85730; 93005; 99291